=== PATIENT | female | born 1950 | race African-American/Black ===

== ENCOUNTER 2017-12-24 16:37 | Emergency (ER) | payer MEDICARE ==
[2017-12-24 17:26] LABS: #Basophils 0.1 thou/uL (0.0-0.2); #Eosinphils 0.3 thou/uL (0.0-0.7); #Lymphocytes 1.9 thou/uL (1.20-3.40); #Monocytes 0.5 thou/uL (0.11-0.59); #Neutrophils 3.6 thou/uL (1.40-6.50); %Basophils 0.9 % (0.0-1.0); %Eosinophils 4.2 % (0.0-10.0); %Lymphocytes 30.4 % (21.0-51.0); %Monocytes 7.7 % (0.0-10.0); %Neutrophils 56.8 % (42.0-75.0); Hemoglobin 13.8 g/dL (12.0-16.0); Mean Corpuscular HGB CONC 32.2 g/dL (32.0-36.0); Mean Corpuscular Hemoglobin 27.7 pg (27.0-31.0); Mean Corpuscular Volume 86.1 fL (78.0-98.0); Mean Platelet Volume 7.8 fL (7.4-10.4); Platelet Count 261 thou/uL (130-400); RBC Distribution Width 12.6 % (11.5-14.5); Red Blood Cell (RBC) Count 4.99 mill/uL (4.20-5.40); White Blood Cell (WBC) Count 6.4 thou/uL (4.8-10.8)
[2017-12-24 17:32] LABS: Bilirubin Negative (Negative); Blood, Urine Negative (Negative); Clarity CLEAR (Clear); Glucose, Urine (Dipstick) Negative (Negative); Leukocyte Negative (Negative); Nitrite Negative (Negative); Protein, Urine (Dipstick) Negative (Neg-Trace); Specific Gravity, Urine 1.003 (1.002-1.036); Urobilinogen 0.2 mg/dL (0.2-1.0); pH, Urine 7.5 (5.0-9.0)
[2017-12-24 17:52] LABS: ALT (SGPT) 24 U/L (8-55); AST (SGOT) 32 U/L (5-34); Alkaline Phosphatase 156 U/L (40-150); Anion Gap 13 mmol/L (10-20); BUN (Urea Nitrogen) 9 mg/dL (9.8-20.1); Bilirubin, Total 1.1 mg/dL (0.2-1.2); Calc. Creatinine Clearance 0 mL/min (70-130); Calcium 9.9 mg/dL (7.8-10.44); Carbon Dioxide 26 mmol/L (23-31); Chloride 99 mmol/L (98-107); Estimated GFR-MDRD Greater than 90; Globulin 3.6 g/dL (2.4-3.5); Glucose 85 mg/dL (80-115); Lipase 11 U/L (8-78); Potassium 4.6 mmol/L (3.5-5.1); Protein, Total 7.6 g/dL (6.0-8.3); Sodium 133 mmol/L (136-145); Troponin I Less than 0.010 ng/mL (< 0.028)
--- NOTE | 2017-12-24 18:20 | RAD ---
CHEST ONE VIEW: History: Dyspnea. Comparison: 09-01-15 FINDINGS: Cardiac silhouette is magnified by projection. Pulmonary vasculature is unremarkable. Mediastinum is midline with aortic calcification. No lobar consolidation or evidence of pneumothorax. IMPRESSION: Atherosclerosis. No active cardiopulmonary abnormalities are otherwise demonstrated. POS: [facility]
[2017-12-24] MEDS ORDERED: Ondansetron ODT 8 MG TAB ONE (19:05)
[2017-12-24] MEDS ORDERED: Ketorolac Tromethamine 60 MG/2 ML VIAL ONE (19:05)
--- NOTE | 2017-12-30 23:07 | EKG ---
Test Reason : Blood Pressure : / mmHG Vent. Rate : 077 BPM Atrial Rate : 077 BPM P-R Int : 128 ms QRS Dur : 080 ms QT Int : 334 ms P-R-T Axes : 060 -23 025 degrees QTc Int : 377 ms Normal sinus rhythm Possible Left atrial enlargement Left ventricular hypertrophy Nonspecific T wave abnormality Abnormal ECG Confirmed by ISELA GOMES ([id number]), book or script editor JOHANA PEPPER ([id number]) on 12/30/2017 11:06:59 PM Referred By: Confirmed By:ISELA GOMES
== END 2017-12-24 19:45 | disposition home or self-care (01) ==
LOC: ERS 16:37
DX: R10.10 Upper abdominal pain, unspecified (principal); M54.9 Dorsalgia, unspecified; I10 Essential (primary) hypertension; I50.9 Heart failure, unspecified; E78.5 Hyperlipidemia, unspecified; M19.90 Unspecified osteoarthritis, unspecified site; Z79.899 Other long term (current) drug therapy
CPT/HCPCS: 71045; 80053; 81003; 82553; 83690; 84484; 85025; 93005; 96372; J1885

== ENCOUNTER 2018-01-16 10:36 | Emergency (ER) | payer MEDICARE ==
[2018-01-16] MEDS ORDERED: Lidocaine 1% (PF) 30 ML VIAL ONE (11:59)
== END 2018-01-16 12:10 | disposition home or self-care (01) ==
LOC: ERS 10:36
DX: R51 Headache (principal); E78.5 Hyperlipidemia, unspecified; I11.0 Hypertensive heart disease with heart failure; I50.9 Heart failure, unspecified; E03.9 Hypothyroidism, unspecified; K21.9 Gastro-esophageal reflux disease without esophagitis; Z79.899 Other long term (current) drug therapy
CPT/HCPCS: 64505; J2001

== ENCOUNTER 2018-01-31 14:55 | Outpatient (CLI) | payer MEDICARE | END 2018-01-31 14:56 | disposition home or self-care (01) | LOC: BICMAMMO 14:55 | PROVIDERS: ATTEND Obstetrics & Gynecology | DX: N63.0 Unspecified lump in unspecified breast (principal); Z85.3 Personal history of malignant neoplasm of breast; Z80.3 Family history of malignant neoplasm of breast | CPT/HCPCS: 77066; G0279 ==

== ENCOUNTER 2018-03-25 18:08 | Emergency (ER) | payer MEDICARE ==
[2018-03-25] MEDS ORDERED: Ibuprofen 800 MG TAB ONE (18:52)
--- NOTE | 2018-03-25 21:22 | CT ---
CT BRAIN NONCONTRAST: DATE: 03-25-18 TIME: 6:45 P.M. HISTORY: 67-year-old female status post-acute head trauma due to fall. COMPARISON: 04-29-16 FINDINGS: Again noted are the small, faint, intraaxial slightly hyperdense lesions in the right side of the adal s and right posterior midbrain, that were demonstrated by the MRI of 01-05-10 to represent multiple sm all brainstem cavernomas. There is an anterior midline pontine intraaxial similar-appearing hyperdense lesion measuring approxi mately 0.7 x 0.4 cm (axial image 9 of 33, series 2) which was not present on the MRI of 2010. It was probably present on 04-29-16, but it appeared more faint on that particular study and was inconspicuous . There are multifocal patchy low density small lesions in the bilateral stone radiata and centrum amado iovale, consistent with chronic ischemic white matter changes due to microvascular atherosclerosis. T here is no evidence of supratentorial intraaxial hemorrhage, mass effect, midline shift, obstructive hydrocephalus, extraaxial fluid collection, subdural hematoma, epidural hematoma, subarachnoid hemorr matty, or calvarial fracture. IMPRESSION: 1. No evidence of acute, traumatic intracranial findings. 2. 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 3. Small focal hyperdense lesion at midline in the anterior afshin which was not present on the MRI of 2010. It resembles the nearby brainstem cavernous malformations, but because it is new since 2010, it is not consistent with a cavernous malformation. Exact etiology is uncertain. It was probably presen t in 04-29-16, but was more faint and more inconspicuous at that time. One possibility is that it is a cavernous malformation that had not had significant bleeding yet at the time of the 2010 MRI. 4. Recommend further evaluation with MRI of the brain with and without contrast (including gradient e cho axial sequence), on an elective basis. NETTA Pritchett POS: [facility]
== END 2018-03-25 20:16 | disposition home or self-care (01) ==
LOC: ERS 18:08
DX: S09.90XA Unspecified injury of head, initial encounter (principal); M19.90 Unspecified osteoarthritis, unspecified site; E78.5 Hyperlipidemia, unspecified; I10 Essential (primary) hypertension; K21.9 Gastro-esophageal reflux disease without esophagitis; Z79.899 Other long term (current) drug therapy; W22.8XXA Striking against or struck by other objects, initial encounter
CPT/HCPCS: 70450

== ENCOUNTER 2018-03-30 08:02 | Outpatient (CLI) | payer MEDICARE ==
--- NOTE | 2018-03-30 09:52 | ULT ---
HEPATIC ULTRASOUND WITH HEPATIC DOPPLER EVALUATION: DATE: 03/30/2018. HISTORY: Elevated liver function tests. FINDINGS: The gallbladder is not visualized and is reportedly surgically absent. The common duct measured 0.7 cm in diameter, which his within normal limits for post cholecystectomy changes. The liver and visualized portions of the IVC demonstrate a normal sonographic appearance. Portions o f the spleen are obscured due to shadowing from adjacent bowel gas, but the spleen is normal in size. The superior pole right kidney was imaged and has a normal sonographic appearance. The majority of the kidney is not imaged on this exam. Doppler evaluation with spectral analysis and color flow evaluation of the hepatic and splenic vessel s was performed with 2D imaging. There is normal directional flow seen within the portal, hepatic, a nd splenic veins. Arterial waveforms are documented within the hepatic and splenic arteries. IMPRESSION: 1. Cholecystectomy. 2. Normal appearance of the liver. POS: [facility]
== END 2018-03-30 08:03 | disposition home or self-care (01) ==
LOC: BICULT 08:02
PROVIDERS: ATTEND Internal Medicine Gastroenterology
DX: R94.5 Abnormal results of liver function studies (principal); Z90.49 Acquired absence of other specified parts of digestive tract
CPT/HCPCS: 76705

== ENCOUNTER 2018-04-18 13:58 | Outpatient (CLI) | payer MEDICARE ==
--- NOTE | 2018-04-18 16:11 | BD ---
DEXA BONE DENSITY: HISTORY: Disorder of bone density. COMPARISON: none. FINDINGS: LUMBAR SPINE BMD (g/cm2) T-SCORE Z-SCORE L1 1.080 0.8 2.0 L2 1.206 1.6 3.0 L3 1.269 1.7 3.1 L4 1.129 0.6 2.1 TOTAL 1.170 1.1 2.5 FEMORAL NECK 0.792 -0.5 0.3 TOTAL 0.907 -0.3 0.3 IMPRESSION: 1. Lumbar spine WHO classification is normal. Fracture risk is not increased. 2. Femoral neck WHO classification is normal. Fracture risk is not reported because all T-scores ar e at or above -1.0. POS: [facility]
== END 2018-04-18 13:59 | disposition home or self-care (01) ==
LOC: BICMAMMO 13:58
PROVIDERS: ATTEND Specialist
DX: M85.88 Other specified disorders of bone density and structure, other site (principal)
CPT/HCPCS: 77080

== ENCOUNTER 2018-05-02 14:42 | Outpatient (CLI) | payer MEDICARE ==
[~2018-05-02 14:42] MED LIST: Gadobenate Dimeglumine 529 MG/1 ML (20ML VIAL) ONE
[2018-05-02 15:33] LABS: Estimated GFR-MDRD - POC Greater than 90
--- NOTE | 2018-05-02 17:31 | MRI ---
MRI BRAIN WITH AND WITHOUT CONTRAST: DATE: 05/02/18 HISTORY: 67-year-old female with history of breast cancer, presents with syncope, R55, resulting in fall and h ead trauma. Abnormality found on noncontrast brain CT of 03/25/18, with recommendation for MRI. COMPARISON: MRI of 05/02/[address] of 03/25/18. TECHNIQUE: Multiple sequences obtained in axial, sagittal, and coronal planes; pre and post IV injection of gado linium-based contrast agent: 20 mL MultiHance. Additional thin slices obtained through the brainstem. FINDINGS: In addition to the previously described two separate cavernous malformations in the right side of the afshin, there are additional multiple other foci of hemosiderin (demonstrated by blooming magnetic heydi ceptibility artifact on the T2* gradient echo sequence) consistent with numerous additional, tiny cav ernous malformations. One of these is a new focus of hemosiderin stain at midline in the anterior adal s, associated with tiny focus of T1 and T2 hyperintensity, without enhancement, representing another cavernous malformation that had hemorrhaged sometime between the prior MRI of 04/14/[address] of 03/25/18, resulting in the focus of high CT density on 03/25/18. This is not a hemorrhagic metastasis ; there is no abnormal enhancement associated with this. 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 No cavernous malformation is visualized in the cerebrum or bilateral cerebellar hemispheres. There has been no other significant interval change. There are numerous small focal T2 hyperintense signal abnormalities in the bilateral stone radiate, centrum semiovale, and afshin, consistent with moderate chronic ischemic white matter changes due to mi crovascular atherosclerosis. Incidentally, there is a small old lacunar infarction in the left basal ganglia, which was also present on 05/02/18. There is no abnormal enhancement in the cerebral hemispheres. No obstructive hydrocephalus, mass effe ct, midline shift, or extra-axial fluid collection. No acute hemorrhage. IMPRESSION: 1. Multiple cavernous malformations in the brainstem, mostly in the afshin (and associated development al venous anomaly (DVA) and capillary telangiectasia). 2. One of them, at midline in the anterior afshin, had undergone hemorrhage sometime between the previ ous MRI of 04/14/[address] of 03/25/18, resulting in the abnormal appearance on that recent brain CT. 3. Moderate degree of chronic ischemic white matter changes due to microvascular atherosclerosis. 4. Small old lacunar infarction in the left basal ganglia. 5. No evidence of intracranial malignant neoplasm, or any acute intracranial findings. JN Shreyas POS: [facility]
== END 2018-05-02 14:43 | disposition home or self-care (01) ==
LOC: BICMRI 14:42
PROVIDERS: ATTEND Specialist
DX: R55 Syncope and collapse (principal); I70.90 Unspecified atherosclerosis; Z86.73 Personal history of transient ischemic attack (TIA), and cerebral infarction without residual deficits
CPT/HCPCS: 70553; 82565; A9577

== ENCOUNTER 2018-08-11 21:17 | Emergency (ER) | payer MEDICARE ==
[2018-08-11 22:10] LABS: #Basophils 0.1 thou/uL (0.0-0.2); #Eosinphils 0.5 thou/uL (0.0-0.7); #Lymphocytes 2.4 thou/uL (1.20-3.40); #Monocytes 0.6 thou/uL (0.11-0.59); #Neutrophils 3.4 thou/uL (1.40-6.50); %Basophils 1.3 % (0.0-1.0); %Eosinophils 7.5 % (0.0-10.0); %Lymphocytes 33.7 % (21.0-51.0); %Monocytes 8.7 % (0.0-10.0); %Neutrophils 48.8 % (42.0-75.0); Hemoglobin 12.9 g/dL (12.0-16.0); Mean Corpuscular HGB CONC 33.7 g/dL (32.0-36.0); Mean Corpuscular Hemoglobin 28.9 pg (27.0-31.0); Mean Corpuscular Volume 85.7 fL (78.0-98.0); Mean Platelet Volume 7.8 fL (7.4-10.4); Platelet Count 227 thou/uL (130-400); Red Blood Cell (RBC) Count 4.48 mill/uL (4.20-5.40)
[2018-08-11 22:26] LABS: Bilirubin Negative (Negative); Blood, Urine Negative (Negative); Clarity CLEAR (Clear); Glucose, Urine (Dipstick) Negative (Negative); Leukocyte Trace (Negative); Nitrite Negative (Negative); Protein, Urine (Dipstick) Negative (Neg-Trace); Specific Gravity, Urine 1.008 (1.002-1.036); Urobilinogen 0.2 mg/dL (0.2-1.0); pH, Urine 6.5 (5.0-9.0)
[2018-08-11 22:29] LABS: Bacteria/HPF None Seen HPF (None Seen); Hyaline Casts/LPF 0-3 HYALINE CAST LPF (0-3 Hyaline); RBC/HPF 0-3 HPF (0-3); Squamous Epithelial 0-3 HPF (0-3); WBC/HPF 0-3 HPF (0-3)
[2018-08-11 22:33] LABS: ALT (SGPT) 24 U/L (8-55); AST (SGOT) 23 U/L (5-34); Albumin 3.8 g/dL (3.4-4.8); Alkaline Phosphatase 150 U/L (40-150); Anion Gap 13 mmol/L (10-20); BUN (Urea Nitrogen) 11 mg/dL (9.8-20.1); Bilirubin, Total 0.8 mg/dL (0.2-1.2); Calc. Creatinine Clearance 0 mL/min (70-130); Calcium 9.5 mg/dL (7.8-10.44); Carbon Dioxide 25 mmol/L (23-31); Chloride 95 mmol/L (98-107); Estimated GFR-MDRD Greater than 90; Globulin 3.2 g/dL (2.4-3.5); Glucose 91 mg/dL (80-115); Sodium 129 mmol/L (136-145)
--- NOTE | 2018-08-11 23:43 | CT ---
CT NECK WITH CONTRAST: 08/11/18 Axial tomograms obtained through the neck with IV enhancement with multiplanar reconstruction. INDICATION: Swelling left neck. History of thyroid goiter. No comparisons studies. FINDINGS: There is a large low density mass which appears centered at the level of the left lobe of the thyroid . This huge mass measures 9.5 cm width x 6.7 cm AP dimension in the axial plane. It produces mass eff ect on the larynx and trachea with significant midline shift to the right. The right lobe of the thyroid is identified and shows heterogeneous enhancement with several small no dules present which are subcentimeter. The parotid glands and submandibular glands unremarkable. Nasopharynx and oropharynx unremarkable. No significant adenopathy. Degenerative changes in the cervical spine most pronounced at C4-5, C5-6, and C6-7. Posterior spondyl itic changes impinge on the cord at C4-5 and C5-6. These changes produce significant cord compressio n and central canal stenosis. IMPRESSION: 1. A large low density mass in the left neck centered at the level of the left lobe of the thyro id. It is producing mass effect and midline shift to the larynx and trachea as noted above. 2. Degenerative changes in the cervical spine with posterior spondylosis producing cord compress ion at C4-5 and C5-6. POS: [facility]
== END 2018-08-12 01:39 | disposition home or self-care (01) ==
LOC: ERS 21:17
DX: E07.9 Disorder of thyroid, unspecified (principal); I11.0 Hypertensive heart disease with heart failure; I50.9 Heart failure, unspecified; E78.5 Hyperlipidemia, unspecified; E03.9 Hypothyroidism, unspecified; K21.9 Gastro-esophageal reflux disease without esophagitis; Z79.899 Other long term (current) drug therapy
CPT/HCPCS: 36415; 70491; 80053; 81003; 81015; 83605; 84443; 85025

== ENCOUNTER 2018-08-17 18:51 | Inpatient (IN) | payer MEDICARE ==
[~2018-08-17 18:51] MED LIST changes: -Gadobenate Dimeglumine 529 MG/1 ML (20ML VIAL) ONE; +ISOVUE-370 76%-LOCM 1 ML ONE
[2018-08-17 19:53] LABS: #Basophils 0.1 thou/uL (0.0-0.2); #Eosinphils 0.5 thou/uL (0.0-0.7); #Monocytes 0.7 thou/uL (0.11-0.59); %Basophils 0.8 % (0.0-1.0); %Eosinophils 6.8 % (0.0-10.0); %Lymphocytes 27.3 % (21.0-51.0); %Monocytes 10.2 % (0.0-10.0); Hemoglobin 12.7 g/dL (12.0-16.0); Mean Corpuscular HGB CONC 32.3 g/dL (32.0-36.0); Mean Corpuscular Hemoglobin 28.7 pg (27.0-31.0); Mean Corpuscular Volume 88.8 fL (78.0-98.0); Mean Platelet Volume 7.5 fL (7.4-10.4); Platelet Count 244 thou/uL (130-400); RBC Distribution Width 12.1 % (11.5-14.5); Red Blood Cell (RBC) Count 4.41 mill/uL (4.20-5.40); White Blood Cell (WBC) Count 7.2 thou/uL (4.8-10.8)
[2018-08-17 20:11] LABS: ALT (SGPT) 21 U/L (8-55); AST (SGOT) 20 U/L (5-34); Albumin 3.7 g/dL (3.4-4.8); Alkaline Phosphatase 147 U/L (40-150); Anion Gap 11 mmol/L (10-20); BUN (Urea Nitrogen) 7 mg/dL (9.8-20.1); Bilirubin, Total 0.7 mg/dL (0.2-1.2); Calc. Creatinine Clearance 0 mL/min (70-130); Calcium 9.3 mg/dL (7.8-10.44); Carbon Dioxide 25 mmol/L (23-31); Chloride 98 mmol/L (98-107); Estimated GFR-MDRD Greater than 90; Globulin 3.1 g/dL (2.4-3.5); Glucose 87 mg/dL (80-115); Potassium 4.3 mmol/L (3.5-5.1); Protein, Total 6.8 g/dL (6.0-8.3); Sodium 130 mmol/L (136-145)
[2018-08-18] MEDS ORDERED: HYDROcodone/Acetaminophen 10/325 mg Tablet ONE (00:14)
[2018-08-18] MEDS ORDERED: Ketorolac Tromethamine 60 MG/2 ML VIAL ONE (00:14)
[2018-08-18] MEDS ORDERED: Dexamethasone 4 MG TAB ONE (01:15)
[2018-08-18] MEDS ORDERED: Morphine 2 MG/ML SYRINGE SLOW IVP PRN ×3 (03:46→07:58)
[2018-08-18] MEDS ORDERED: Acetaminophen 325 MG TAB PO PRN (03:47)
[2018-08-18] MEDS ORDERED: Ondansetron ODT 4 MG TAB SL PRN (03:47)
[2018-08-18] MEDS ORDERED: Morphine 4 MG/ML VIAL SLOW IVP PRN (03:47)
[2018-08-18] MEDS ORDERED: Ondansetron PF 4 MG/2 ML Vial IVP PRN ×2 (03:47→07:48)
[2018-08-18] MEDS ORDERED: HYDROcodone/Acetaminophen 5/325 mg Tablet PO PRN ×2 (03:47)
[2018-08-18] MEDS ORDERED: Sodium Chloride 0.9% 1,000 ML IV SCH (04:00)
[2018-08-18 05:19] VITALS: BMI 39.6
[2018-08-18] MEDS ORDERED: Sodium Chloride 0.9% (PF) 10 ML VIAL FS PRN (07:43)
--- NOTE | 2018-08-18 07:56 | HP ---
CHIEF COMPLAINT: Large goiter causing airway and esophageal constriction. HISTORY OF PRESENT ILLNESS: The patient is a 68-year-old female, who came to see Dr. Portillo approximately 3 weeks ago in his office for the first visit. Immediately, it was noted that she had a very large goiter present and also on review of her past medical history, it was evident that she has had thyroid disease for quite some time, and further evaluation was necessary. An Endocrine referral was made, but as of at the time of this dictation, the patient has not heard from that specialist for followup. However, over that time frame, she feels like the mass is enlarged significantly and is now causing her choking sensation and pain. She states that she cannot wait. It is too painful. She has to have something done about this. She was seen once earlier in the ER approximately 1 week ago and was deferred for outpatient care. However, she was told to come back if her symptoms worsen and she states indeed they have. She is now having difficulty swallowing, difficulty breathing, especially when lying flat. In the ER, CT scan was repeated from previous ER visit and does show enlargement. PAST MEDICAL HISTORY: Significant for arthritis, hypertension, history of breast cancer, hypothyroidism, gastroesophageal reflux, hyperlipidemia, allergic rhinitis, hypothyroidism. PAST SURGICAL HISTORY: Her prior surgeries include knee surgery bilaterally, appendectomy, cholecystectomy, and right breast cancer. SOCIAL HISTORY: Denies any drug or alcohol use. Does not smoke. FAMILY HISTORY: Positive coronary artery disease and diabetes as well as hypertension and malignancy. ALLERGIES: SHE HAS NO KNOWN DRUG ALLERGIES. MEDICATIONS: Her medications on admission include; 1. Pravastatin 20 mg at bedtime. 2. Anastrozole 1 mg daily. 3. [employer] Thyroid 60 mg a day. 4. Omeprazole 20 mg a day. 5. Singulair 10 mg a day. 6. Carvedilol 12.5 mg a day. REVIEW OF SYSTEMS: GENERAL: At the time of admission, denies fever, chills, but has general weakness. HEENT: Denies drainage in ears, nose, or throat. No sores or lesions. CHEST: Denies coughing, but has shortness of breath when lying flat. CARDIOVASCULAR: Denies chest pain or palpitations. GASTROINTESTINAL: Denies nausea, vomiting, or diarrhea. GENITOURINARY: Denies blood in urine or stool or dysuria. MUSCULOSKELETAL: Denies aches or pains in her major joints. SKIN: No new rashes or lesions. NEUROLOGIC: No trouble with mentation, hypoesthesia, or anesthesias. PHYSICAL EXAMINATION: VITAL SIGNS: At the time of admission, blood pressure 154/89, pulse 67, respirations 16, temperature 97.7, pain scale 10/10, and O2 saturation 100% on room air. GENERAL: This is a well-developed, well-nourished, female, alert and oriented and cooperative. HEENT: Normocephalic, atraumatic. Pupils are equal, round, and reactive to light. Extraocular muscles intact. TMs, nares, and pharynx are clear. Arcus senilis bilaterally. NECK: Taken up with a very large slightly left-sided mass that is firm and tender to palpation. CHEST: Clear to auscultation. BREASTS: Missing right, but remainder of breasts exam deferred. HEART: Regular rate and rhythm. CHEST: Good breath sounds bilaterally. ABDOMEN: Soft and nontender without organomegaly. GENITOURINARY: Deferred. EXTREMITIES: Without clubbing, cyanosis, or edema. Normal range of motion bilaterally in upper and lower extremities. Normal muscular tone. SKIN: Without rashes or lesions. NEUROLOGICAL: Cranial nerves are intact. Gait and cerebral function are untested. Sensory exam is grossly intact. Mental status is baseline. LABORATORY DATA: On admission showed CT scan with an enlarged thyroid mass, appears to be a goiter. ASSESSMENT: 1. Large neck mass , ?Goiter, encroaching esophagus and trachea creating dyspnea 2. History of right breast cancer. 3. Hypertension. 4. Hypothyroidism. 5. Gastroesophageal reflux disease. 6. Dyslipidemia. PLAN: Keep the patient n.p.o. We will get ENT consultation for possible surgery. In the meantime, we will provide pain management and supportive care. We will serially re-evaluate her and provide pain management. Job ID: [id number] [facility]
--- NOTE | 2018-08-18 08:21 | CT ---
PRELIMINARY REPORT/[facility]/AFTER HOURS PROCEDURE EXAM: CT Neck With Contrast EXAM DATE/TIME: 08/18/2018 12:42 AM CLINICAL HISTORY: 68 years old, female; Condition or disease; Patient HX: Mass on thyroid for unk time, dx recently. Told to come back for worsening sxs. C/O pain of her jaw and neck, feels like she is choking TECHNIQUE: Imaging protocol: Axial computed tomography images of the neck with intravenous contrast. Coronal and sagittal reformatted images were created and reviewed. COMPARISON: No relevant prior studies available. FINDINGS: Orbits: Changes of prior bilateral ocular surgery. Nasopharynx: Normal. Oropharynx: Normal. No significant tonsillar enlargement. Hypopharynx: Normal. Larynx: Normal. Normal epiglottis. Retropharyngeal space: Normal. Submandibular/Parotid glands: Normal. Glands are normal in size. Thyroid: Heterogeneous right thyroid lobe, containing several hypodense nodules, the largest measuring approximately 6 mm in diameter. Lymph nodes: Normal. No lymphadenopathy. Trachea: 9.0 x 7.7 x 9.3 cm hypodense mass within the left neck, causing rightward shift of the hypopharyngeal structures and cervical trachea. Lungs: Normal as visualized. Vasculature: No acute findings. Bones/joints: Multilevel cervical spine degenerative changes. Soft tissues: Normal. No significant soft tissue swelling. IMPRESSION: 9.0 x 7.7 x 9.3 cm hypodense mass within the left neck, causing rightward shift of the hypopharyngeal structures and cervical trachea. Differential considerations include proteinaceous cyst such as brachial cleft cyst. Alternatively, large thyroid cyst is possible. Recommend further evaluation. Thank you for allowing us to participate in the care of your patient. Dictated and Authenticated by: Miki Marcano MD 08/18/2018 3:23 AM Central Time ([place] & [place]) FINAL REPORT CT NECK WITH IV CONTRAST: PROVIDED CLINICAL HISTORY: Neck mass. COMPARISON: 08/11/2018 FINDINGS/IMPRESSION: Agree with the preliminary interpretation given by [facility]. Significant interval change with respect to the prior study is not apparent. ENT consultation is recommended. Transcribed Date/Time: 08/18/2018 8:34 AM
[2018-08-18] MEDS: Dextrose 5 % And 0.9 % NaCl 1,000 ML IV SCH ×2 (08:39→17:20)
[2018-08-18] MEDS: Carvedilol 6.25 MG TAB PO SCH ×2 (08:40→20:54)
[2018-08-18] MEDS: Pantoprazole 40 MG VIAL IVP SCH (08:43)
[2018-08-18] MEDS ORDERED: Dexamethasone 10 MG in Sodium Chloride 0.9% 50 ML IVPB SCH (09:00)
[2018-08-18] MEDS: Dexamethasone 10 MG/ML VIAL SLOW IVP SCH (14:51)
[2018-08-19] MEDS: Dextrose 5 % And 0.9 % NaCl 1,000 ML IV SCH ×2 (03:38→12:32)
[2018-08-19] MEDS: Dexamethasone 10 MG/ML VIAL SLOW IVP SCH ×2 (03:38→12:32)
[2018-08-19] MEDS: Thyroid 60 MG TAB PO SCH (06:24)
[2018-08-19] MEDS: Carvedilol 6.25 MG TAB PO SCH ×2 (08:41→21:34)
[2018-08-19] MEDS: Pantoprazole 40 MG VIAL IVP SCH (08:41)
[2018-08-19] MEDS ORDERED: Lidocaine 1% (PF) 30 ML VIAL ONE (15:32)
[2018-08-19] MEDS ORDERED: Ondansetron ODT 4 MG TAB PO PRN (20:25)
[2018-08-19] MEDS ORDERED: Dexamethasone 4 MG TAB PO SCH (20:30)
[2018-08-20] MEDS ORDERED: Dexamethasone 4 MG TAB PO SCH (08:00)
[2018-08-20] MEDS: Carvedilol 6.25 MG TAB PO SCH (08:48)
[2018-08-20] MEDS: Thyroid 60 MG TAB PO SCH (08:48)
[2018-08-20 08:55] VITALS: TEMP 97.8
[2018-08-20] MEDS ORDERED: cloNIDine 0.1 MG TAB PO SCH (10:30)
[2018-08-20 10:35] VITALS: BP 189/84
--- NOTE | 2018-08-28 07:50 | OP ---
DATE OF PROCEDURE: 08/18/2018 PREOPERATIVE DIAGNOSES: 1. Obstructive thyroid mass. 2. Substernal goiter. PROCEDURES PERFORMED: 1. Left thyroid lobectomy with substernal dissection. 2. Laryngeal nerve monitoring. PROCEDURE IN DETAIL: After consent was obtained, the patient was identified and brought to the operating room and placed on the operating room table in supine position. General endotracheal anesthesia was obtained with a laryngeal nerve monitoring endotracheal tube. The patient was positioned for surgery. The neck was prepped and draped in sterile fashion. The lower neck incision was delineated with a marking pen in the natural skin crease. The area was infiltrated with 1% lidocaine with 1:100,000 epinephrine. The mass was quite large, measuring nearly 40 cm and filling the entire left neck and displacing the trachea significantly to the esophagus. The incision was opened and carried down through the skin and subcutaneous tissues, and all the way down to the platysma. The platysma was incised and subplatysmal flaps were created. We then divided the strap muscles in midline, which were markedly displaced to the right. We got down on the thyroid capsule and admits meticulously dissected that from the strap muscles. With the help of retraction, the mass was dissected from the surrounding vascular sheath. The middle thyroid vessels, superior vessels, and inferior vessels were all found suture ligated. We then found the recurrent laryngeal nerve, which was markedly displaced and dissected that to its insertion into the cricothyroid muscle. At this point, we then transected the thyroid ligament and reflected the thyroid mass medially. Once all its structures were delineated, the mass was aspirated with several 100 mL of fluid to decrease its size so that we could continue the dissection. The mass was then more easily dissected from the pretracheal region and the substernal area. Care was made not to injure the great vessels with recurrent laryngeal nerve in the substernal area. The finger dissection was facilitated removing the mass from the aortic arch. The mass was then delivered back into the neck and the dissection continued. The thyroid was then transected at its midline and suture ligated. We then spent a significant amount of time obtaining hemostasis with a combination of Fibrillar, Surgicel, electrocautery, and bipolar cautery. Ultimately, no bleeding was encountered and the wound was closed and Fibrillar and Surgicel were placed in the deep aspect of the wound. The Valsalva failed to reveal any bleeding. We then proceeded with wound closure with reapproximation of the platysma in dermis region and the skin was closed with a running subcuticular. A dressing was placed. The patient was awakened, extubated, and taken to recovery room in stable condition prior to discharge home. Job ID: [id number]
== END 2018-08-20 10:37 | disposition home or self-care (01) | DRG 627 ==
LOC: ERS 18:51 → OBSVTOIN 08-18 02:08 → ONC 08-18 02:08
PROVIDERS: ADMIT Specialist; ATTEND Specialist
PROC: 0GBG0ZZ Excision of Left Thyroid Gland Lobe, Open Approach (ICD-10-PCS; principal; 2018-08-18)
PROC: 4A1004G Monitoring of Central Nervous Electrical Activity, Intraoperative, Open Approach (ICD-10-PCS; 2018-08-18)
DX: E04.9 Nontoxic goiter, unspecified (principal); I10 Essential (primary) hypertension; E03.9 Hypothyroidism, unspecified; K21.9 Gastro-esophageal reflux disease without esophagitis; E78.5 Hyperlipidemia, unspecified; M19.90 Unspecified osteoarthritis, unspecified site; Z85.3 Personal history of malignant neoplasm of breast; Z90.49 Acquired absence of other specified parts of digestive tract; Z98.890 Other specified postprocedural states
CPT/HCPCS: 36415; 70491; 80053; 84439; 84443; 85025; 88173; 88305; 96360; 96361; 96372; C9113; J1100; J1885; J2001; J2270; J8540; Q9966

== ENCOUNTER 2018-08-23 10:34 | Observation (INO) | payer MEDICARE ==
[~2018-08-23 10:34] MED LIST changes: +Dexamethasone 20 MG/5 ML VIAL ONE; -ISOVUE-370 76%-LOCM 1 ML ONE; +Ketorolac Tromethamine 30 MG/ML VIAL ONE; +Lidocaine 1% PF 5 ML VIAL ONE; +Metoclopramide HCl 10 MG/2 ML VIAL ONE; +Ondansetron PF 4 MG/2 ML Vial ONE; +PHENYLEPHRINE-NS 100 MCG/ML 10 ML SYRINGE ONE; +PROPOFOL 200 MG/20 ML VIAL ONE; +Succinylcholine Chloride 20 MG/ML 10 ml SYRINGE FS ONE; +ePHEDrine 50 MG/ML VIAL ONE
[2018-08-23] MEDS ORDERED: Fentanyl 100 MCG/2 ML VIAL ONE ×4 (11:21→16:34)
[2018-08-23] MEDS ORDERED: Famotidine/PF 20 mg/2ml Vial ONE (11:21)
[2018-08-23] MEDS ORDERED: Bacitracin Zinc Ointment 30 gm TUBE ONE (11:23)
[2018-08-23] MEDS ORDERED: Lidocaine 1% w/Epinephrine 1:100K 20 ML VIAL ONE (11:23)
[2018-08-23] MEDS ORDERED: Ondansetron HCl/PF 4 MG/2 ML Vial IVP PRN (14:05)
[2018-08-23] MEDS ORDERED: Hydrocodone-Acetamin 15 ML UDCUP ONE (17:35)
[2018-08-23] MEDS ORDERED: Morphine 2 MG/ML SYRINGE SLOW IVP PRN (20:30)
[2018-08-23] MEDS ORDERED: HYDROcodone/Acetaminophen 7.5/325 mg Tablet PO PRN (20:32)
[2018-08-23] MEDS ORDERED: Promethazine HCl 25 MG in Sodium Chloride 0.9% 50 ML IVPB PRN (20:33)
[2018-08-23] MEDS ORDERED: D5 1/4 NS 1,000 ML IV SCH (20:45)
[2018-08-23 21:55] VITALS: BMI 40.2
[2018-08-24] MEDS ORDERED: hydrALAZINE 20 MG/ML VIAL SLOW IVP PRN (00:40)
[2018-08-24] MEDS: HYDROcodone/Acetaminophen 7.5/325 mg Tablet PO PRN ×2 (00:48→11:31)
[2018-08-24] MEDS ORDERED: cefTRIAXone\\ROCEPHIN 1 GM in Sodium Chloride 0.9% 100 ML IVPB SCH (09:00)
[2018-08-24 11:18] VITALS: BP 151/68; TEMP 98.1
--- NOTE | 2018-08-24 14:47 | OP ---
DATE OF PROCEDURE: 08/23/2018 PREOPERATIVE DIAGNOSES: 1. Large left obstructive thyroid mass. 2. Large substernal extension of obstructive thyroid mass. POSTOPERATIVE DIAGNOSES: 1. Large left obstructive thyroid mass. 2. Large substernal extension of obstructive thyroid mass. PROCEDURE PERFORMED: Left thyroid lobectomy with substernal dissection. PROCEDURE IN DETAIL: After consent was obtained, the patient was identified and brought to the operating room and placed on the operating room table in supine position. General endotracheal anesthesia was obtained carefully considering the trachea was markedly displaced to the right. After the patient was positioned, prepped and draped. The area of intended incision was infiltrated with 1% lidocaine with 1:100,000 epinephrine. We made an incision through the skin, subcutaneous tissues, and platysma. A very large mass was incurred. Subplatysmal flaps were elevated and the strap muscles were divided. We encountered a very large cystic structure, which was meticulously dissected from the surrounding tissues. Some of the fluid content of the cystic mass was aspirated to facilitate dissection. Once mobilized medially, we were able to identify the superior vascular pole in the middle thyroid vessels, which were suture ligated. This then allowed for rotation of the mass again medially until the recurrent laryngeal nerve was identified. We were able to dissect the mass from the surrounding tissues in pretracheal area. The marked adhesive reaction had occurred. Ultimately, the thyroid ligament and inferior vessels were transected and the mass was divided in midline, sent for histologic evaluation. We then obtained hemostasis in the surgical bed after the extensive sub-external dissection occurred. The specimen was sent intact. Fibrillar and Surgicel were placed in the deep aspect of the wound in the pretracheal area and the strap muscles were reapproximated as was the platysma. The dermis was closed with Monocryl and the skin was closed with a running Prolene suture. Steri-Strips were applied and a sterile dressing. The patient was awakened, taken to recovery room in a stable condition prior to discharge home. Job ID: [id number]
== END 2018-08-24 17:10 | disposition home or self-care (01) ==
LOC: SDC 10:34 → 2SW 19:13
PROVIDERS: ADMIT Specialist; ATTEND Specialist
PROC: 0GTK0ZZ Resection of Thyroid Gland, Open Approach (ICD-10-PCS; principal; 2018-08-23)
DX: E04.1 Nontoxic single thyroid nodule (principal); J38.00 Paralysis of vocal cords and larynx, unspecified; R13.10 Dysphagia, unspecified
CPT/HCPCS: 60270; 88307; 93005; 96365; 96375; G0378; 93010; J0131; J0360; J0696; J1100; J1885; J2001; J2405; J2704; J2765; J3010; J3490; S0028

== ENCOUNTER 2018-09-17 20:53 | Emergency (ER) | payer MEDICARE ==
[2018-09-17] MEDS ORDERED: Metoclopramide HCl 10 MG/2 ML VIAL ONE (21:19)
--- NOTE | 2018-09-17 21:36 | CT ---
CT HEAD WITHOUT CONTRAST: HISTORY: Headache. COMPARISON: 03/25/2018 FINDINGS: There are numerous hyperdense lesions in the brainstem, which have been described previously as naif nous hemangioma. These appear stable. The ventricles remain normal in size and position. There are chronic ischemic white matter changes, which appear stable. No infarct or acute hemorrhage. IMPRESSION: No acute finding. POS: [facility]
[2018-09-17 21:53] LABS: #Basophils 0.1 thou/uL (0.0-0.2); #Eosinphils 0.1 thou/uL (0.0-0.7); #Lymphocytes 1.7 thou/uL (1.20-3.40); #Monocytes 0.7 thou/uL (0.11-0.59); #Neutrophils 3.1 thou/uL (1.40-6.50); %Basophils 0.9 % (0.0-1.0); %Eosinophils 2.3 % (0.0-10.0); %Lymphocytes 30.5 % (21.0-51.0); %Monocytes 11.5 % (0.0-10.0); %Neutrophils 54.7 % (42.0-75.0); Hemoglobin 12.1 g/dL (12.0-16.0); Mean Corpuscular HGB CONC 31.8 g/dL (32.0-36.0); Mean Corpuscular Hemoglobin 27.1 pg (27.0-31.0); Mean Platelet Volume 7.3 fL (7.4-10.4); Platelet Count 240 thou/uL (130-400); RBC Distribution Width 12.5 % (11.5-14.5); Red Blood Cell (RBC) Count 4.48 mill/uL (4.20-5.40); White Blood Cell (WBC) Count 5.7 thou/uL (4.8-10.8)
[2018-09-17 22:15] LABS: ALT (SGPT) 26 U/L (8-55); AST (SGOT) 26 U/L (5-34); Albumin 3.6 g/dL (3.4-4.8); Alkaline Phosphatase 122 U/L (40-150); Anion Gap 11 mmol/L (10-20); BUN (Urea Nitrogen) 6 mg/dL (9.8-20.1); Bilirubin, Total 1.3 mg/dL (0.2-1.2); CK (CPK) 199 U/L (29-168); Calc. Creatinine Clearance 0 mL/min (70-130); Calcium 9.2 mg/dL (7.8-10.44); Carbon Dioxide 26 mmol/L (23-31); Chloride 90 mmol/L (98-107); Estimated GFR-MDRD Greater than 90; Globulin 2.2 g/dL (2.4-3.5); Glucose 100 mg/dL (80-115); Potassium 4.3 mmol/L (3.5-5.1); Protein, Total 5.8 g/dL (6.0-8.3); Sodium 123 mmol/L (136-145)
[2018-09-17] MEDS ORDERED: Ketorolac Tromethamine 30 MG/ML VIAL ONE (22:36)
[2018-09-17] MEDS ORDERED: Acetaminophen 500 MG TAB ONE (23:46)
[2018-09-18] MEDS ORDERED: Magnesium 2 GM/50 ML BAG (IN WATER) ONE (00:03)
== END 2018-09-18 01:03 | disposition home or self-care (01) ==
LOC: ERS 20:53
DX: R51 Headache (principal); E87.1 Hypo-osmolality and hyponatremia; I11.0 Hypertensive heart disease with heart failure; I50.9 Heart failure, unspecified; E78.5 Hyperlipidemia, unspecified; M19.90 Unspecified osteoarthritis, unspecified site; K21.9 Gastro-esophageal reflux disease without esophagitis; E03.9 Hypothyroidism, unspecified; Z79.899 Other long term (current) drug therapy
CPT/HCPCS: 70450; 80053; 82550; 84484; 85025; 93005; 96365; 96366; 96367; 96375; J1885; J2765; J3475

== ENCOUNTER 2018-09-25 00:02 | Inpatient (IN) | payer MEDICARE ==
[2018-09-25 00:57] LABS: #Basophils 0.1 thou/uL (0.0-0.2); #Eosinphils 0.1 thou/uL (0.0-0.7); #Lymphocytes 1.5 thou/uL (1.20-3.40); #Monocytes 0.6 thou/uL (0.11-0.59); #Neutrophils 3.8 thou/uL (1.40-6.50); %Basophils 0.9 % (0.0-1.0); %Eosinophils 1.4 % (0.0-10.0); %Lymphocytes 24.9 % (21.0-51.0); %Monocytes 10.5 % (0.0-10.0); %Neutrophils 62.4 % (42.0-75.0); Hemoglobin 11.7 g/dL (12.0-16.0); Mean Corpuscular HGB CONC 33.8 g/dL (32.0-36.0); Mean Corpuscular Hemoglobin 28.7 pg (27.0-31.0); Mean Corpuscular Volume 84.9 fL (78.0-98.0); Mean Platelet Volume 7.4 fL (7.4-10.4); Platelet Count 199 thou/uL (130-400); RBC Distribution Width 12.6 % (11.5-14.5); Red Blood Cell (RBC) Count 4.07 mill/uL (4.20-5.40); White Blood Cell (WBC) Count 6.1 thou/uL (4.8-10.8)
[2018-09-25 01:04] LABS: INR-International Normal Ratio 1.2; PTT 26.9 SEC (22.9-36.1); Prothrombin Time 14.7 SEC (12.0-14.7)
[2018-09-25 01:18] LABS: Acetaminophen Less than 6.0 mcg/mL (10.0-30.0); Alcohol Less than 10 mg/dL (Less than 10); Salicylate Less than 8.0 mg/dL (15.0-30.0)
[2018-09-25 01:19] LABS: ALT (SGPT) 22 U/L (8-55); AST (SGOT) 24 U/L (5-34); Albumin 2.9 g/dL (3.4-4.8); Alkaline Phosphatase 94 U/L (40-150); Anion Gap 11 mmol/L (10-20); BUN (Urea Nitrogen) 8 mg/dL (9.8-20.1); Bilirubin, Total 1.1 mg/dL (0.2-1.2); CK (CPK) 316 U/L (29-168); Calc. Creatinine Clearance 0 mL/min (70-130); Calcium 8.7 mg/dL (7.8-10.44); Carbon Dioxide 25 mmol/L (23-31); Chloride 92 mmol/L (98-107); Estimated GFR-MDRD Greater than 90; Globulin 2.1 g/dL (2.4-3.5); Glucose 122 mg/dL (80-115); Lipase 7 U/L (8-78); Potassium 3.2 mmol/L (3.5-5.1); Sodium 125 mmol/L (136-145)
[2018-09-25] MEDS ORDERED: hydrALAZINE 20 MG/ML VIAL SLOW IVP PRN (01:24)
[2018-09-25 02:52] VITALS: BMI 37.3
[2018-09-25] MEDS ORDERED: Ondansetron ODT 4 MG TAB SL PRN (03:14)
[2018-09-25] MEDS ORDERED: Sodium Chloride 0.9% 1,000 ML IV SCH (03:14)
[2018-09-25] MEDS ORDERED: Ondansetron PF 4 MG/2 ML Vial IVP PRN (03:14)
--- NOTE | 2018-09-25 08:00 | CON ---
DATE OF CONSULTATION: HOSPITAL COURSE: Ms. Nj is a very pleasant 68-year-old woman that I am evaluating in the emergency department after she was transported via EMS here to [place] after her son found her down in the kitchen. He states that he was in the next room and heard a thud in the kitchen and went to go see and she was laying down on her face. I asked the patient, if she recalls this, she states she does remember walking in the kitchen, but does not remember falling. She does recall waking up in the kitchen and the son corroborates this saying that she did start to come around and interact with him some, but her speech was garbled and she was confused. This prompted to contact the EMS who came out to the house and brought her in. Of note, she received a week ago or so for hypertension. The son and niece in the room stated over the last few weeks her systolic pressures have become difficult to control frequently in the 180s and 190s. Her primary care physician had been working to help correct this by increasing the doses of her blood pressure medications, but unfortunately it seemed like it was dropping, although this evening her pressures have been in the 130s to 140s systolic. CT scan performed in the emergency department reveals 3 distinct areas of hyperdensities in the afshin likely indicating pontine hemorrhage, although multifocal. CTA was done, which reveals no vascular abnormalities. She is not on any blood thinning medications of note. PHYSICAL EXAMINATION: GENERAL: On examination, she is awake and interactive. She is appropriate and oriented to name, place, location, date of . EXTREMITIES: She has full 5/5 strength and function in the right upper extremity and bilateral lower extremities. However, the left upper extremity has some reduced dexterity, particularly in the hand and her nurse substance abuse strength I would say is about a 4+/5 as opposed to her right as previously stated as 5/5. HEENT: Pupils are equally round and reactive to light. Extraocular movements are intact. She has traumatic nasal hematoma likely from her fall and is missing one of her teeth, which is new since the fall. From neurosurgical standpoint this likely represents a non-operative hemorrhage, would recommend IMCU management given the likelihood that some of her symptoms would likely worsen given it is rather sensitive region of the brain. Close monitoring is warranted. With repeat CT scan in the morning around 8 hours from now and aim to control her systolic pressures with target below 140 with whichever antihypertensives the primary . Job ID: [id number]
--- NOTE | 2018-09-25 08:02 | CT ---
PRELIMINARY REPORT/[facility]/EMERGENCY AFTER HOURS PROCEDURE: EXAM: CT Cervical Spine Without Contrast EXAM DATE/TIME: 09/25/2018 12:10 AM CLINICAL HISTORY: 68 years old, female; Injury or trauma; Initial encounter; Blunt trauma; Patient HX: *level 1 stroke* f70, last seen normal around 2330. Left sided weakness, AMS. Patient was found in kitchen unresponsi ve, blood on face. Patient appears to have fallen and hit face. TECHNIQUE: Imaging protocol: Computed tomography images of the cervical spine without contrast. Coronal and sagi ttal reformatted images were created and reviewed. COMPARISON: CT Neck Soft Tissue W Con 08/18/2018 12:42 AM FINDINGS: Vertebrae: No acute fracture. Normal alignment. Discs/Spinal canal/Neural foramina: No spinal stenosis. No neural foraminal narrowing. Soft tissues: Unremarkable. Lungs: Lung apices are normal. IMPRESSION: No acute findings. Thank you for allowing us to participate in the care of your patient. Dictated and Authenticated by: Forrest Fry MD 09/25/2018 12:28 AM Central Time ([place] & [place]) FINAL REPORT CT CERVICAL SPINE WITHOUT CONTRAST: Date: 09/25/18 HISTORY: Trauma. Unresponsive patient. COMPARISON: None. FINDINGS: No craniocervical dissociation. Appropriate alignment of the lateral masses of C1 and C2. Multilevel degenerative changes of the cervical spine. Limited evaluation by technique. Cervical spine vertebral body height is maintained. No fracture. IMPRESSION: This report is in agreement with the preliminary report by [facility]. No fracture. POS: OFF
--- NOTE | 2018-09-25 08:06 | CT ---
PRELIMINARY REPORT/[facility]/EMERGENCY AFTER HOURS PROCEDURE: Addendum created by Forrest Fry MD on 09/25/2018 12:29 AM Central Time ([place] & [place]) Findings disc ussed with BRENDAN WEI MD at time of interpretation. Initial Report created on 09/25/2018 12:23 AM Central Time ([place] & [place]) EXAM: CT Head Without Contrast EXAM DATE/TIME: 09/25/2018 12:08 AM CLINICAL HISTORY: 68 years old, female; Weakness, extremity; Patient HX: *level 1 stroke* f70, last seen normal around 2330. Left sided weakness, AMS. Patient was found in kitchen unresponsive, blood on face. Patient kayode ears to have fallen and hit face. TECHNIQUE: Imaging protocol: Computed tomography images of the head without contrast. Other technique: STROKE PROTOCOL was implemented. COMPARISON: No relevant prior studies available. FINDINGS: Brain: There are 3 small areas of hyperdensity in the afshin and medulla which are suspicious for small acute intraparenchymal brainstem hemorrhages; however, cavernoma or less likely neoplasm cannot be e xcluded. No discernible brainstem edema. Mild generalized volume loss of the brain. Ventricles: Normal. No ventriculomegaly. Bones/joints: Unremarkable. No acute fracture. Sinuses: Visualized sinuses are unremarkable. No fluid levels. Mastoid air cells: Visualized mastoid air cells are well aerated. No mastoid effusion. Soft tissues: Unremarkable. IMPRESSION: There are 3 small areas of hyperdensity in the afshin and medulla, the largest of which measures 7 mm, which are suspicious for small acute intraparenchymal brainstem hemorrhages, potentially related to h ypertension. No discernible brainstem edema. Thank you for allowing us to participate in the care of your patient. Dictated and Authenticated by: Forrest Fry MD 09/25/2018 12:23 AM Central Time ([place] & [place]) FINAL REPORT HEAD CT WITHOUT CONTRAST: Date: 09/25/18 COMPARISON: 09/17/18. HISTORY: Level I stroke. Left-sided weakness. Unresponsive patient. FINDINGS: No parenchymal hemorrhage or extra-axial hematoma. No midline shift. Basilar cisterns are patent. Age -appropriate brain volume. Cortical kapadia-white matter differentiation is preserved. No evidence of hy drocephalus. 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 Calvarium is intact. IMPRESSION: This report is in agreement with the preliminary report by [facility]. There is no acute intracranial proce ss. 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 POS: OFF
--- NOTE | 2018-09-25 08:23 | RAD ---
SINGLE VIEW CHEST: HISTORY: Stroke like symptoms and altered mental status. COMPARISON: 12/24/2017 FINDINGS: A single view of the chest shows a normal sized cardiomediastinal silhouette with atherosclerotic jozef cifications in the aorta. There is no evidence of consolidation, mass, or pleural effusion. IMPRESSION: No evidence of acute cardiopulmonary disease. POS: CET
--- NOTE | 2018-09-25 08:26 | HP ---
CHIEF COMPLAINT: Acute hemorrhagic afshin/medulla CVA. HISTORY OF PRESENT ILLNESS: The patient is a 68-year-old female, who had been seeing Dr. Portillo for workup of her high blood pressure and a low sodium as well as correction of her thyroid functions since removal of a huge goiter. She was most recently hospitalized in August of this year where Dr. Oakes removed the huge goiter. The pathology on that is still pending. Pathological diagnosis is left thyroid lobe, lobectomy with benign thyroid cyst. No parathyroid glands identified. No atypia or malignancy identified. The patient's current injuries occurred when she states she had slipped and fallen on her face. Actually the patient was found down in her kitchen by her family with family voicing concern that she has hit her head, noting that she was missing 2 front teeth. EMS arrived to find the patient unconscious, requiring sternal rub to awaken. She is oriented x2 to self and place. Blood pressure 108/60 at the scene. D stick at 136. She was transported to [facility]. EMS noted to have garbled speech and a stroke Scale of 13 showing left-sided weakness and altered mental status. CT obtained in the emergency room quickly showed 3 small hypodense areas concerning for bleed in the afshin and medulla. Dr. Portillo was contacted concerning further evaluation and workup. When she was stabilized and she was transferred to the [facility] for further observation. PAST MEDICAL HISTORY: Includes congestive heart failure, hyperlipidemia, osteoarthritis, hypertension, right breast cancer, hypothyroidism, GERD and allergic rhinitis. PAST SURGICAL HISTORY: Includes knee surgery bilaterally, appendectomy, cholecystectomy, right breast cancer, and most recently left thyroid lobectomy. SOCIAL HISTORY: Does not use drugs or smoke. No alcohol use. FAMILY HISTORY: Positive for coronary artery disease and diabetes, hypertension, and malignancy. ALLERGIES: SHE HAS NO KNOWN DRUG ALLERGIES. MEDICATIONS: On admission include: 1. Omeprazole 40 mg daily. 2. [place] Thyroid 60 mg p.o. daily. 3. Pravastatin 20 mg at bedtime. 4. Anastrozole 1 mg daily. 5. Singulair 10 mg daily. 6. Carvedilol 12.5 mg b.i.d. REVIEW OF SYSTEMS: CONSTITUTIONAL: At this time, the patient is alert and denies any fever, chills, malaise. HEENT: Has facial swelling and pain at this time, missing her 2 front teeth. CHEST: Denies shortness of breath or cough. CARDIOVASCULAR: Denies palpitations or chest pain. GI: Denies nausea, vomiting, diarrhea. : Denies dysuria, blood in urine or stool. EXTREMITIES: Denies any new pain in joints or muscles. SKIN: No new rashes or lesions. NEUROLOGIC: Cranial nerves observed to be adequate. There is still some left-sided weakness noted and has headache from fall. PHYSICAL EXAMINATION: VITAL SIGNS: Blood pressure 108/59, pulse 63, respirations 19, pain scale of zero. O2 saturation 100% on room air. GENERAL: This is a morbidly obese female alert, responsive, in no acute distress. HEENT: Normocephalic with swollen face and lips with missing teeth. Pupils are equal, round, and reactive to light. Arcus senilis bilaterally. TMs clear. Pharynx with the aforementioned missing teeth. NECK: Supple. Trachea midline with well healed incision. No mass. CHEST: Clear to auscultation. BREAST: Deferred. HEART: Regular rate and rhythm without murmur. ABDOMEN: Soft without organomegaly, nontender. : Deferred. EXTREMITIES: Without clubbing, cyanosis, or edema. Diminished range of motion on the left with weakness generally in the left upper emergency room specialist and movement of the left leg. SKIN: No acute lesions. NEUROLOGIC: Cranial nerves appear intact. Unable to test gait and cerebellar function at this time. Sensory exam grossly intact. Mental status alert, oriented x3. LABORATORY DATA: On admission showed sodium 125, potassium 3.2, chloride 92, BUN 11, creatinine is 0.63, BUN 8, glucose 122, calcium 8.7. Liver function is normal. CK 316 and ammonia 26. Troponins are negative. TSH 3.69. WBC 6, hemoglobin 11.7, hematocrit 34.5, platelets at 199. PT 14.7, APTT 26.9 with an INR of 1.2. Tox screen is negative for alcohol, acetaminophen and salicylates. IMAGIN. CT scan significant for possible afshin/medulla infarcts. 2. Chest x-ray, no acute findings. ASSESSMENT: 1. 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 2. Traumatic fall with avulsion of front 2 teeth. 3. Recent history of left lobectomy for thyroid goiter. 4. Hypertension. 5. Hyponatremia. 6. Workup in progress for Syndrome of inappropriate antidiuretic hormone secretion. PLAN: 1. Plan will be to get Neurology consultation. 2. Serially re-evaluate her for stroke rehab. 3. Do a swallow study and consult Neurology and serially re-evaluate her. Job ID: [id number]
--- NOTE | 2018-09-25 08:32 | CT ---
PRELIMINARY REPORT/[facility]/EMERGENCY AFTER HOURS PROCEDURE: EXAM: CT Angiography Head Without And With Contrast EXAM DATE/TIME: 09/25/2018 12:23 AM CLINICAL HISTORY: 68 years old, female; Patient HX: *level 1 stroke* f70, last seen normal around 2330. Left sided weak ness, AMS. Patient was found in kitchen unresponsive, blood on face. Patient appears to have fallen a nd hit face. TECHNIQUE: Imaging protocol: Computed tomographic angiography images of the head without and with intravenous co ntrast using CT angiography protocol. Coronal and sagittal reformatted images were created and review ed. 3D rendering: MIP reconstructed images were created and reviewed. Other technique: STROKE PROTOCOL was implemented. COMPARISON: CT Brain WO Con 09/25/2018 12:08 AM FINDINGS: Right internal carotid artery: Unremarkable. Intracranial segment is patent with no significant steno sis. No aneurysm. Right anterior cerebral artery: Unremarkable. No occlusion or significant stenosis. No aneurysm. Right middle cerebral artery: Unremarkable. No occlusion or significant stenosis. No aneurysm. Right posterior cerebral artery: Unremarkable. No occlusion or significant stenosis. No aneurysm. Right vertebral artery: Unremarkable. No occlusion or significant stenosis. No aneurysm. Left internal carotid artery: Unremarkable. Intracranial segment is patent with no significant stenos is. No aneurysm. Left anterior cerebral artery: Unremarkable. No occlusion or significant stenosis. No aneurysm. Left middle cerebral artery: Unremarkable. No occlusion or significant stenosis. No aneurysm. Left posterior cerebral artery: Unremarkable. No occlusion or significant stenosis. No aneurysm. Left vertebral artery: Unremarkable. No occlusion or significant stenosis. No aneurysm. Basilar artery: Unremarkable. No occlusion or significant stenosis. No aneurysm. Other vasculature: There is what appears to be an incidental developmental venous anomaly in the afshin . HEAD: Brain: The hyperdensities that were visible on noncontrast CT are only faintly visible on the CTA. Besides small foci of intraparenchymal brainstem hemorrhage, these might signify incidental capillary telangiectasias. Ventricles: Normal. No ventriculomegaly. Bones/joints: Unremarkable. No acute fracture. Sinuses: Visualized sinuses are normal. No fluid levels. Mastoid air cells: Visualized mastoids are normal. No mastoid effusion. Soft tissues: There is potentially abnormal soft tissue density anterior to the nasal bones which cou ld signify hematoma. IMPRESSION: 1. There is what appears to be an incidental developmental venous anomaly in the afshin. 2. The hyperdensities that were visible on noncontrast CT are only faintly visible on the CTA. Beside s small foci of intraparenchymal brainstem hemorrhage, these might signify incidental capillary telan giectasias. 3. Cerebral arteries are normal. 4. There is potentially abnormal soft tissue density anterior to the nasal bones which could signify hematoma. Thank you for allowing us to participate in the care of your patient. Dictated and Authenticated by: Forrest Fry MD 09/25/2018 1:05 AM Central Time ([place] & [place]) FINAL REPORT CT ANGIOGRAM OF THE HEAD: Date: 09/25/18 HISTORY: Stroke. Left-sided weakness. COMPARISON: None. TECHNIQUE: CT angiogram of the head is performed in the axial plane. Three-dimensional reformatted images are sanchez bmitted for interpretation. FINDINGS: No pathologic enhancement of the brain parenchyma. There is appropriate enhancement and luminal diame ter of the visualized distal cervical and intracranial internal carotid arteries. [place] de monstrates appropriate enhancement and luminal diameter in terms of the anterior and posterior circul ation. Proximal A2 and MCA branches have symmetric enhancement and luminal diameter. IMPRESSION: This report is in agreement with the preliminary report by [facility]. No significant occlusion at the leve l of the [place]. Additional findings as described in the preliminary report by [facility]. POS: OFF
--- NOTE | 2018-09-25 08:56 | PRG ---
DATE OF SERVICE: 09/25/2018 Ms. Nj is admitted overnight around 6 o'clock in the morning for fall with altered mental status and CT identified small intraparenchymal hemorrhage of the afshin. This morning, she actually seems to be continuing to improve. She is speaking in full sentences, is fully oriented. Function of her left hand is improving. It has been definitely much stronger than it was some 5 hours ago this morning. I discussed with her that we will be repeating a CT scan around 9 o'clock this morning to check the size of these hemorrhages and if they look well, we will sign off and plan to follow up in 4 to 6 weeks. She will need excellent blood pressure control going forward with preference to keep systolic pressures under 140 date today and as previously stated, follow up with her in roughly a month to 6 weeks with repeat imaging at that time. Job ID: [id number]
[2018-09-25] MEDS ORDERED: Pantoprazole 40 MG VIAL IVP SCH (09:00)
[2018-09-25] MEDS ORDERED: Carvedilol 25 MG TAB PO SCH (09:00)
--- NOTE | 2018-09-25 09:39 | CT ---
CT BRAIN WITHOUT CONTRAST: HISTORY: Follow up intracranial hemorrhage. COMPARISON: Earlier exam done at 12:09 a.m. on the same date. FINDINGS: Small hyperdensities in the brainstem are stable and likely due to cavernous hemangiomas, which were also seen on the previous MRI brain of 05/02/2018. The exam is stable. No interval change is seen. IMPRESSION: Stable examination since 12;09 a.m. from the same date. POS: OFF
[2018-09-25] MEDS ORDERED: ISOVUE-370 76%-LOCM 1 ML ONE (10:02)
[2018-09-25] MEDS: Thyroid 60 MG TAB PO SCH (11:04)
--- NOTE | 2018-09-25 14:09 | CON ---
DATE OF CONSULTATION: 09/25/2018 SERVICE: Pulmonary Medicine. REASON FOR CONSULTATION: IMCU patient. HISTORY OF PRESENT ILLNESS: The patient is a 68-year-old female with past medical history significant for cerebral hemangiomas. They were previously identified on the CT scan. It gave us pause for concern, but ultimately, she had an MRI that demonstrated that these were clearly hemangiomas and were not acute intraparenchymal hemorrhages. Either way, she was in her usual state of health when she slipped and tripped. She fell and struck her head. She lost consciousness temporarily. She was brought to the Emergency Department, and a CT of the head gave for possible pontine intraparenchymal hemorrhages. She was placed in the ICU. A repeat CT was performed. These findings were stable. It was compared to a previous MRI, which was also stable. As such, she actually did not have an acute hemorrhagic event. She denies any current fevers, chills, nausea, or vomiting. She does have some sore face. She has noted no lightheadedness or dizziness. I asked her on multiple occasions whether or not she felt this was more of a mechanical fall versus getting dizzy or having a fall secondary to medical issues. She seemed to believe that she was in her usual state of health and had a mechanical fall because she continues to say that she "slipped." She remembers trying to catch herself on the way down, but failed to do so. PAST MEDICAL HISTORY: 1. Congestive heart failure. 2. Hypertension. 3. Dyslipidemia. 4. Hypothyroidism. 5. Breast cancer on the right. 6. Gastroesophageal reflux disease. 7. Allergic rhinitis. 8. Osteoarthritis. PAST SURGICAL HISTORY: 1. Knee surgeries, bilateral. 2. Appendectomy. 3. Cholecystectomy. 4. Mastectomy on the right. 5. Left thyroidectomy. SOCIAL HISTORY: Negative for alcohol, tobacco, or illicit drug use. FAMILY HISTORY: Noncontributory. ALLERGIES: NO KNOWN DRUG ALLERGIES. MEDICATIONS: List of her inpatient medications was reviewed. No specific updates were made at this time. REVIEW OF SYSTEMS: General; head, ears, eyes, nose, throat; cardiovascular; respiratory; GI; ; musculoskeletal; neurologic; and skin are negative except as mentioned in the HPI. PHYSICAL EXAMINATION: VITAL SIGNS: Afebrile, pulse 70, blood pressure 111/51, respirations 24, and saturation 100% on room air. GENERAL: The patient is awake and alert, in no apparent distress. LUNGS: One full air entry without any prolonged expiratory phase or wheezing. HEART: Normal rate and regular. ABDOMEN: Soft, nontender, and nondistended. Bowel sounds positive. MUSCULOSKELETAL: No cyanosis or clubbing. No pitting in the bilateral lower extremities. NEUROLOGIC: Grossly nonfocal. Rapidly alternating movements are symmetric bilaterally. Pupils are equal, round, and reactive. She has good extraocular movements. Cranial nerves are otherwise intact. Strength is symmetric bilaterally. Reflexes and sensation are not tested. LABORATORY DATA: WBC 6.1, hemoglobin 11.7, platelets 199,000. Basic metabolic profile significant for sodium of 125, which is close to her baseline. Potassium 3.2. Liver function studies are unremarkable. Her CK is 316. Troponin is negative x1, BNP is unremarkable. TSH falls within the normal limits. Salicylates, acetaminophen, and urine alcohol level were unremarkable. IMAGIN. CT of the brain demonstrates stable hemangiomas that were previously identified on MRI. No acute intraparenchymal abnormalities are identified. 2. Chest x-ray demonstrates no acute cardiopulmonary process. 3. CT of the [place] demonstrates no obstructive lesions. 4. CT of the C-spine demonstrates no osseous abnormality or subluxation. ASSESSMENT: 1. Mechanical fall. 2. 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 DISCUSSION AND PLAN: We will involve Physical Therapy and Occupational Therapy. I will discontinue our bed rest. I give her diet, and replace potassium. She is being worked up for her inappropriate ADH secretion. I will add fluid restriction to her diet. At this point, she has no further requirements for Pulmonary or Critical Care opinion, and I will sign off. Please call with additional questions or concerns through time. 70 minutes have been devoted to this patient in various activities. I personally reviewed all imaging studies and laboratory data noted within this document. For fifty percent of this time, I was interacting with the patient at the bedside or coordinating care with the care team. For the remainder of the time I was immediately available to the patient in the hospital unit. Job ID: [id number] [facility]
--- NOTE | 2018-09-25 14:23 | RAD ---
LEFT HAND THREE VIEWS: HISTORY: Arthritis. COMPARISON: None available. FINDINGS: There is osteoarthritis involving the interphalangeal joints, as well as the metacarpophalangeal join ts of the thumb and middle finger, as well as involving the greater multangular joint. Small erosion s are seen at the metacarpophalangeal joint, laterally, involving the ring finger. No fracture or di slocation is identified. No other osseous abnormality. IMPRESSION: Scattered osteoarthritis. POS: MAYELA
[2018-09-25] MEDS: Potassium Chloride 20 MEQ TAB PO SCH ×2 (15:14→17:48)
--- NOTE | 2018-09-25 18:31 | CON ---
DATE OF CONSULTATION: 09/25/2018 CONSULTING PHYSICIAN: Dr. Portillo. 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 PLAN: Blood pressure management as per Neurosurgery's recommendations. HISTORY OF PRESENT ILLNESS: Ms. Nj is a 68-year-old woman with past history of hypertension and vascular malformation in the brainstem. She was standing in her house when she started to feel hot. She got a bit nauseous and lightheaded. She had a mild headache associated with it. She decided to come in for an evaluation. Her CT showed 2 areas of small acute appearing hemorrhage in the afshin. CT angiogram was unremarkable for any major vessel anomalies, but only suggestive of venous malformation in the brainstem. She has had an MRI of the brain done in April of this year. There was no acute hemorrhage, but there was evidence of the development of hemosiderin compared to prior studies done in 2018. She has apparently been having some difficulty controlling her blood pressure lately. PAST MEDICAL HISTORY: Hypertension. ALLERGIES: NONE. SOCIAL HISTORY: Unremarkable. FAMILY HISTORY: Noncontributory. REVIEW OF SYSTEMS: Ten-system review of systems is otherwise negative. PHYSICAL EXAMINATION: GENERAL: She is an alert, cooperative, elderly lady, in no acute distress. VITAL SIGNS: Blood pressure 96/82. HEENT: Pupils are equal. Conjunctivae clear. Oropharynx clear. Cranium, normocephalic and atraumatic. NECK: Supple. EXTREMITIES: No cyanosis or edema. NEUROLOGIC: She is alert and cooperative. Her speech is fluent and clear. There is a slight flattening of the right nasolabial fold. Motor exam showed a questionable fix on arm roll testing on the left side. Sensation is subjectively equal. She could walk a short distance with a roller walker. IMAGING STUDIES: Reviewed. SUMMARY: An elderly lady with developmental vascular malformation that had shown some sign of intermittent hemorrhage in the past. I would not put her on antiplatelet therapy, and would agree with blood pressure management as recommended by Neurosurgery. Job ID: [id number]
[2018-09-25] MEDS: Labetalol HCl 100 MG/20 ML VIAL SLOW IVP PRN (21:27)
--- NOTE | 2018-09-25 21:47 | PRG ---
DATE OF SERVICE: 09/25/2018 Ms. Nj is a 68-year-old female admitted for altered mental status, status post fall. She had a CT examination performed, which revealed presence of small punctate hemorrhages within the brainstem. She had followup imaging, which shows no significant expansion inside these hemorrhages and she has a neurologic exam that is improving clinically. I reviewed the note of assessment by Rajiv Almeida as well as notes by other practitioners. I agree with the plan of action, which is nonoperative management. She will need to undergo PT, OT. We will follow up with her in the outpatient clinic. Job ID: [id number]
[2018-09-25] MEDS ORDERED: Pravastatin Sodium 20 MG TAB PO SCH (22:30)
[2018-09-25] MEDS ORDERED: Anastrozole 1 MG TAB PO SCH (22:30)
[2018-09-26] MEDS: Carvedilol 6.25 MG TAB PO SCH ×3 (00:28→22:02)
[2018-09-26] MEDS: Labetalol HCl 100 MG/20 ML VIAL SLOW IVP PRN (00:47)
[2018-09-26 05:41] LABS: #Eosinphils 0.1 thou/uL (0.0-0.7); #Lymphocytes 1.9 thou/uL (1.20-3.40); #Monocytes 0.7 thou/uL (0.11-0.59); #Neutrophils 3.9 thou/uL (1.40-6.50); %Basophils 0.2 % (0.0-1.0); %Monocytes 10.7 % (0.0-10.0); Hemoglobin 11.8 g/dL (12.0-16.0); Mean Corpuscular HGB CONC 33.2 g/dL (32.0-36.0); Mean Corpuscular Hemoglobin 28.4 pg (27.0-31.0); Mean Corpuscular Volume 85.4 fL (78.0-98.0); Mean Platelet Volume 7.6 fL (7.4-10.4); Platelet Count 204 thou/uL (130-400); RBC Distribution Width 12.9 % (11.5-14.5); Red Blood Cell (RBC) Count 4.14 mill/uL (4.20-5.40); White Blood Cell (WBC) Count 6.6 thou/uL (4.8-10.8)
[2018-09-26 06:04] LABS: Anion Gap 9 mmol/L (10-20); BUN (Urea Nitrogen) 6 mg/dL (9.8-20.1); Calc. Creatinine Clearance 145 mL/min (70-130); Carbon Dioxide 24 mmol/L (23-31); Cardiac Risk 2.3 (Less than 4.5); Chloride 101 mmol/L (98-107); Cholesterol 117 mg/dl (< 200 Desired); Estimated GFR-MDRD Greater than 90; Glucose 78 mg/dL (80-115); HDL Cholesterol 50 mg/dL (>60 Neg Risk); LDL Cholesterol, Calculated 57 mg/dL; Potassium 3.8 mmol/L (3.5-5.1); Sodium 130 mmol/L (136-145); Triglycerides 48 mg/dL (Less than 150)
[2018-09-26] MEDS: hydrALAZINE 25 MG TAB PO SCH ×3 (09:06→21:27)
[2018-09-26] MEDS: Thyroid 60 MG TAB PO SCH (09:06)
--- NOTE | 2018-09-26 13:08 | RAD ---
RADIOGRAPH LEFT HIP 2 VIEWS: 09/26/18 HISTORY: 68-year-old female with acute traumatic left hip pain after fall. FINDINGS: There is vacuum joint phenomenon, joint space narrowing, irregularity of articular surfaces, osteophy tosis, subchondral cyst formation, and severe sclerosis, of lower portion of left SI joint. Femoral h ead contour is maintained. Little or no left hip joint space narrowing. No significant acetabular or subcapital osteophytes. No fracture visualized. No dislocation. IMPRESSION: 1. Severe osteoarthrosis of the left sacroiliac joint. 2. Normal appearance of left hip joint. POS: [facility]
--- NOTE | 2018-09-26 13:12 | CT ---
CT MAXILLOFACIAL NONCONTRAST: 09/26/18 HISTORY: 68-year-old female status post acute facial trauma from fall. FINDINGS: Nondisplaced, probably acute, fracture of inferolateral aspect of right nasal bone, with overlying so ft tissue edema. No other fracture. Paranasal sinuses and bilateral tympanomastoid cavities, are summer r. Soft tissue density mass within right external auditory canal. No hematoma in deep spaces of face. TMJs are bilaterally intact. Moderate to severe degenerative disc disease at C3-4 and severe degener ative disc disease at C4-5. Orbits are clear. IMPRESSION: 1. Acute, traumatic, nondisplaced fracture of inferolateral portion of right nasal bone. 2. No other fracture. 3. Cerumen in right external auditory canal. 4. High grade cervical spondylosis. POS: SID
[2018-09-26 17:55] LABS: CCP IgG Antibody Less than 0.4 EliAU/mL (<7 Negative); EliA RAS New Method **** NEW METHOD ****; Rheumatoid Factor IgA Antibody 1.4 IU/mL (<14 Negative); Rheumatoid Factor IgM Antibody Less than 0.5 IU/mL (<3.5 Negative)
[2018-09-26] MEDS: Pravastatin Sodium 20 MG TAB PO SCH (22:02)
[2018-09-26] MEDS: Acetaminophen 325 MG TAB PO PRN (22:03)
[2018-09-26] MEDS: Anastrozole 1 MG TAB PO SCH (22:03)
[2018-09-27] MEDS: Thyroid 60 MG TAB PO SCH (09:55)
[2018-09-27] MEDS: hydrALAZINE 25 MG TAB PO SCH ×3 (09:55→20:30)
[2018-09-27] MEDS: Carvedilol 6.25 MG TAB PO SCH ×2 (10:00→20:30)
--- NOTE | 2018-09-27 10:20 | RAD ---
RADIOGRAPH CHEST 2 VIEW: DATE: 09-27-18 HISTORY: 68-year-old female with aspiration pneumonia FINDINGS: There are no air space densities, pulmonary edema, pneumothorax, or pleural effusion. Cardiac size n ormal or upper limits of normal. IMPRESSION: No acute pulmonary findings. jn POS: CET
[2018-09-27] MEDS: Acetaminophen 325 MG TAB PO PRN (15:31)
[2018-09-27] MEDS: Pravastatin Sodium 20 MG TAB PO SCH (20:29)
[2018-09-27] MEDS: Anastrozole 1 MG TAB PO SCH (20:30)
[2018-09-28] MEDS: Acetaminophen 325 MG TAB PO PRN ×2 (02:40→15:17)
[2018-09-28 05:19] LABS: #Eosinphils 0.2 thou/uL (0.0-0.7); #Lymphocytes 1.8 thou/uL (1.20-3.40); #Monocytes 0.7 thou/uL (0.11-0.59); #Neutrophils 3.2 thou/uL (1.40-6.50); %Basophils 0.5 % (0.0-1.0); %Eosinophils 3.7 % (0.0-10.0); %Monocytes 11.8 % (0.0-10.0); Hemoglobin 11.5 g/dL (12.0-16.0); Mean Corpuscular HGB CONC 32.9 g/dL (32.0-36.0); Mean Corpuscular Hemoglobin 28.3 pg (27.0-31.0); Mean Corpuscular Volume 85.9 fL (78.0-98.0); Mean Platelet Volume 7.4 fL (7.4-10.4); Platelet Count 195 thou/uL (130-400); RBC Distribution Width 13.1 % (11.5-14.5); Red Blood Cell (RBC) Count 4.07 mill/uL (4.20-5.40)
[2018-09-28 05:37] LABS: Anion Gap 12 mmol/L (10-20); BUN (Urea Nitrogen) 10 mg/dL (9.8-20.1); Calc. Creatinine Clearance 135 mL/min (70-130); Calcium 9.1 mg/dL (7.8-10.44); Carbon Dioxide 25 mmol/L (23-31); Chloride 100 mmol/L (98-107); Estimated GFR-MDRD Greater than 90; Glucose 90 mg/dL (80-115); Potassium 3.9 mmol/L (3.5-5.1); Sodium 133 mmol/L (136-145)
[2018-09-28] MEDS: hydrALAZINE 25 MG TAB PO SCH ×3 (08:50→21:55)
[2018-09-28] MEDS: Thyroid 60 MG TAB PO SCH (08:50)
[2018-09-28] MEDS: Carvedilol 6.25 MG TAB PO SCH ×2 (08:51→21:54)
[2018-09-28] MEDS: Anastrozole 1 MG TAB PO SCH (21:53)
[2018-09-28] MEDS: Pravastatin Sodium 20 MG TAB PO SCH (21:54)
[2018-09-29 06:05] LABS: Anion Gap 10 mmol/L (10-20); BUN (Urea Nitrogen) 10 mg/dL (9.8-20.1); Calc. Creatinine Clearance 129 mL/min (70-130); Calcium 9.2 mg/dL (7.8-10.44); Carbon Dioxide 27 mmol/L (23-31); Chloride 101 mmol/L (98-107); Estimated GFR-MDRD Greater than 90; Glucose 92 mg/dL (80-115); Potassium 4.1 mmol/L (3.5-5.1); Sodium 134 mmol/L (136-145)
[2018-09-29] MEDS: hydrALAZINE 25 MG TAB PO SCH ×3 (09:36→21:16)
[2018-09-29] MEDS: Fluticasone Propionate Nasal Spray 16 gm Bottle NASAL SCH ×2 (09:36→21:17)
[2018-09-29] MEDS: Carvedilol 6.25 MG TAB PO SCH ×2 (09:37→21:16)
[2018-09-29] MEDS: Thyroid 60 MG TAB PO SCH (09:37)
[2018-09-29] MEDS: Labetalol HCl 100 MG/20 ML VIAL SLOW IVP PRN (17:25)
[2018-09-29] MEDS: Acetaminophen 325 MG TAB PO PRN (21:15)
[2018-09-29] MEDS: Anastrozole 1 MG TAB PO SCH (21:15)
[2018-09-29] MEDS: Pravastatin Sodium 20 MG TAB PO SCH (21:17)
[2018-09-30 05:36] LABS: Anion Gap 9 mmol/L (10-20); BUN (Urea Nitrogen) 8 mg/dL (9.8-20.1); Calc. Creatinine Clearance 142 mL/min (70-130); Calcium 9.5 mg/dL (7.8-10.44); Carbon Dioxide 28 mmol/L (23-31); Chloride 99 mmol/L (98-107); Estimated GFR-MDRD Greater than 90; Glucose 88 mg/dL (80-115); Potassium 3.8 mmol/L (3.5-5.1); Sodium 132 mmol/L (136-145)
[2018-09-30] MEDS: hydrALAZINE 25 MG TAB PO SCH (08:12)
[2018-09-30] MEDS: Carvedilol 6.25 MG TAB PO SCH ×2 (08:13→21:23)
[2018-09-30] MEDS: Fluticasone Propionate Nasal Spray 16 gm Bottle NASAL SCH ×2 (08:13→21:24)
[2018-09-30] MEDS: Thyroid 60 MG TAB PO SCH (08:20)
[2018-09-30] MEDS ORDERED: Sodium Chloride 0.9% 250 ML 250 ML IVPB SCH (09:45)
[2018-09-30] MEDS: Sodium Chloride 0.9% 1,000 ML IV SCH ×2 (10:06→18:11)
[2018-09-30] MEDS: Anastrozole 1 MG TAB PO SCH (21:22)
[2018-09-30] MEDS: Famotidine 20 MG TAB PO SCH (21:24)
[2018-09-30] MEDS: Pravastatin Sodium 20 MG TAB PO SCH (21:24)
[2018-10-01 05:33] LABS: Anion Gap 9 mmol/L (10-20); BUN (Urea Nitrogen) 8 mg/dL (9.8-20.1); Calc. Creatinine Clearance 145 mL/min (70-130); Calcium 9.1 mg/dL (7.8-10.44); Carbon Dioxide 23 mmol/L (23-31); Chloride 104 mmol/L (98-107); Estimated GFR-MDRD Greater than 90; Glucose 80 mg/dL (80-115); Sodium 132 mmol/L (136-145)
[2018-10-01] MEDS: Sodium Chloride 0.9% 1,000 ML IV SCH (08:57)
[2018-10-01] MEDS: Famotidine 20 MG TAB PO SCH ×2 (09:08→20:14)
[2018-10-01] MEDS: Fluticasone Propionate Nasal Spray 16 gm Bottle NASAL SCH ×2 (09:08→20:11)
[2018-10-01] MEDS: Thyroid 60 MG TAB PO SCH (09:09)
[2018-10-01] MEDS: Carvedilol 25 MG TAB PO SCH ×2 (09:09→20:13)
[2018-10-01] MEDS: Acetaminophen 325 MG TAB PO PRN (15:41)
[2018-10-01] MEDS: Anastrozole 1 MG TAB PO SCH (20:12)
[2018-10-01] MEDS: Pravastatin Sodium 20 MG TAB PO SCH (20:14)
[2018-10-01 20:26] VITALS: BP 157/66; TEMP 98.7
--- NOTE | 2018-10-02 13:54 | EKG ---
Test Reason : Blood Pressure : / mmHG Vent. Rate : 063 BPM Atrial Rate : 063 BPM P-R Int : 150 ms QRS Dur : 092 ms QT Int : 438 ms P-R-T Axes : 074 -23 016 degrees QTc Int : 448 ms Normal sinus rhythm Nonspecific ST and T wave abnormality Abnormal ECG Confirmed by SANJUANA VAN, JOON ([id number]), purchasing expeditor JOHANA PEPPER ([id number]) on 10/02/2018 1:53:23 PM Referred By: Confirmed By:JOON WEI MD
== END 2018-10-01 23:00 | DRG 314 ==
LOC: ERS 00:02 → IMCU/EMU 02:44 → 2SE 20:27
PROVIDERS: ADMIT Specialist; ATTEND Specialist
DX: D18.09 Hemangioma of other sites (principal); R40.2222 Coma scale, best verbal response, incomprehensible words, at arrival to emergency department; E87.1 Hypo-osmolality and hyponatremia; I11.0 Hypertensive heart disease with heart failure; E78.5 Hyperlipidemia, unspecified; M19.90 Unspecified osteoarthritis, unspecified site; E03.9 Hypothyroidism, unspecified; K21.9 Gastro-esophageal reflux disease without esophagitis; J30.9 Allergic rhinitis, unspecified; R40.2362 Coma scale, best motor response, obeys commands, at arrival to emergency department; R40.2142 Coma scale, eyes open, spontaneous, at arrival to emergency department; W18.30XA Fall on same level, unspecified, initial encounter; S03.2XXA Dislocation of tooth, initial encounter; Z90.11 Acquired absence of right breast and nipple; Y92.010 Kitchen of single-family (private) house as the place of occurrence of the external cause; Z90.49 Acquired absence of other specified parts of digestive tract; Z85.3 Personal history of malignant neoplasm of breast
CPT/HCPCS: 36415; 36416; 70450; 70486; 70496; 71045; 71046; 72125; 80048; 80053; 80061; 80307; 82140; 82550; 83520; 83690; 83880; 84443; 84484; 85025; 85610; 85730; 86200; 87040; 87076; 93005; 96360; C9113; J0360; Q9966

== ENCOUNTER 2019-01-01 08:36 | Outpatient (CLI) | payer MEDICARE ==
--- NOTE | 2019-01-01 09:13 | CT ---
EXAM: Brain CT scan without contrast: HISTORY: Intracerebral hemorrhage COMPARISON: 09/25/2018 FINDINGS: Several stable circumscribed hyperdensity foci primarily within the afshin evidence for cavernous heman giomas. Atrophy and chronic white matter ischemic change. No focal mass or midline shift. No intra or extra-axial hemorrhage. The visualized sinuses and mastoids are clear of acute process. IMPRESSION: No mass or bleed or other significant acute intracranial process. Stable appearance. No new process.
== END 2019-01-01 08:37 | disposition home or self-care (01) ==
LOC: TBSIIMAG 08:36
PROVIDERS: ATTEND Neurological Surgery
DX: I62.9 Nontraumatic intracranial hemorrhage, unspecified (principal)
CPT/HCPCS: 70450

== ENCOUNTER 2019-02-15 10:19 | Outpatient (CLI) | payer MEDICARE ==
--- NOTE | 2019-02-15 11:40 | MMO ---
Bilateral MAMMO Bilat Diag DDI+ROBBY. CLINICAL HISTORY: Patient is 68 years old and is seen for diagnostic exam. The patient has the following family history of breast cancer: maternal grandmother, at age 45. The patient has a history of lumpectomy procedure revealed invasive ductal right breast carcinoma in January, and Ultrasound guided core biopsy procedure revealed invasive ductal right breast carcinoma in December,. The patient has a history of right Ultrasound Guided Core Biopsy in December, and right Lumpectomy in December, - malignant. VIEWS: The views performed were: bilateral craniocaudal with tomosynthesis; bilateral mediolateral oblique with tomosynthesis; and bilateral mediolateral with tomosynthesis. FILMS COMPARED: The present examination has been compared to prior imaging studies performed at [facility] on 06/09/2015, 12/15/2015, 12/16/2016 and 01/31/2018. This study has been interpreted with the assistance of computer-aided detection. MAMMOGRAM FINDINGS: There are scattered fibroglandular densities. Finding 1: There is a stable post-surgical scar seen in the right breast. Finding 2: There are stable benign appearing calcifications seen in both breasts. There are no suspicious masses, suspicious calcifications, or new areas of architectural distortion. IMPRESSION: THERE IS NO MAMMOGRAPHIC EVIDENCE OF MALIGNANCY. A ROUTINE FOLLOW-UP MAMMOGRAM IN 1 YEAR IS RECOMMENDED. THE RESULTS OF THIS EXAM WERE SENT TO THE PATIENT. ACR BI-RADS Category 2 - Benign finding MAMMOGRAPHY NOTE: 1. A negative mammogram report should not delay a biopsy if a dominant of clinically suspicious mass is present. 2. Approximately 10% to 15% of breast cancers are not detected by mammography. 3. Adenosis and dense breasts may obscure an underlying neoplasm. Reported by: CONOR SOSA MD Electonically Signed: [id number]
== END 2019-02-15 10:20 | disposition home or self-care (01) ==
LOC: BICMAMMO 10:19
PROVIDERS: ATTEND Specialist
DX: Z08 Encounter for follow-up examination after completed treatment for malignant neoplasm (principal); Z85.3 Personal history of malignant neoplasm of breast
CPT/HCPCS: 77066; G0279

== ENCOUNTER 2019-09-24 16:29 | Inpatient (IN) | payer MEDICARE, OTHER ==
--- NOTE | 2019-09-24 17:29 | CT ---
Exam: Head CT without contrast HISTORY: Altered mental status COMPARISON: 01/01/2019, 09/25/2018 FINDINGS: Hemorrhage: No intraparenchymal hemorrhage or extra-axial hematoma. Brain parenchyma: Cortical kapadia-white matter differentiation is preserved. No mass effect or midline shift. Basilar cisterns are patent.Stable chronic small vessel ischemic changes of the white matter. Stable hyperdensity in the midline of the afshin and right aspect of the midbrain compatible wi th known cavernous hemangiomas. Ventricular system: Ventricles and sulci are patent and symmetric. Calvarium: Intact. Sinuses and mastoid air cells: Adequate aeration. IMPRESSION: No acute intracranial process.
[2019-09-24 17:34] LABS: Bilirubin Negative (Negative); Blood, Urine Negative (Negative); Clarity Clear (Clear); Glucose, Urine (Dipstick) Normal (Negative); Ketone, Urine Negative (Negative); Leukocyte Negative Leu/uL (Negative); Nitrite Negative (Negative); Protein, Urine (Dipstick) Negative (Neg-Trace); pH, Urine 6.5 (5.0-9.0)
[2019-09-24 17:41] LABS: #Eosinphils 0.3 thou/uL (0.0-0.7); #Lymphocytes 1.6 thou/uL (1.20-3.40); #Monocytes 0.6 thou/uL (0.11-0.59); #Neutrophils 3.7 thou/uL (1.40-6.50); %Basophils 0.6 % (0.0-1.0); %Eosinophils 4.9 % (0.0-10.0); %Monocytes 9.6 % (0.0-10.0); %Neutrophils 58.8 % (42.0-75.0); Hemoglobin 12.4 g/dL (12.0-16.0); Mean Corpuscular HGB CONC 31.6 g/dL (32.0-36.0); Mean Corpuscular Hemoglobin 28.9 pg (27.0-31.0); Mean Corpuscular Volume 91.6 fL (78.0-98.0); Mean Platelet Volume 7.7 fL (7.4-10.4); Platelet Count 220 thou/uL (130-400); RBC Distribution Width 12.4 % (11.5-14.5); Red Blood Cell (RBC) Count 4.29 mill/uL (4.20-5.40); White Blood Cell (WBC) Count 6.3 thou/uL (4.8-10.8)
[2019-09-24 18:01] LABS: ALT (SGPT) 48 U/L (8-55); AST (SGOT) 33 U/L (5-34); Albumin 3.6 g/dL (3.4-4.8); Alkaline Phosphatase 121 U/L (40-110); Anion Gap 9 mmol/L (10-20); BUN (Urea Nitrogen) 16 mg/dL (9.8-20.1); Bilirubin, Total 1.2 mg/dL (0.2-1.2); CK (CPK) 103 U/L (29-168); Calc. Creatinine Clearance 0 mL/min (70-130); Calcium 8.8 mg/dL (7.8-10.44); Carbon Dioxide 28 mmol/L (23-31); Chloride 103 mmol/L (98-107); Estimated GFR-MDRD Greater than 90; Globulin 2.9 g/dL (2.4-3.5); Glucose 75 mg/dL (83-110); Lipase 11 U/L (8-78); Potassium 4.3 mmol/L (3.5-5.1); Protein, Total 6.5 g/dL (6.0-8.3); Sodium 136 mmol/L (136-145)
[2019-09-24] MEDS ORDERED: Aspirin 325 MG TAB ONE (19:07)
[2019-09-24 19:13] LABS: Hemoglobin A1c 5.3 % (4.0-6.0)
[2019-09-24] MEDS ORDERED: Ondansetron PF 4 MG/2 ML Vial IVP PRN (20:50)
[2019-09-24] MEDS ORDERED: Acetaminophen 325 MG TAB PO PRN (20:50)
[2019-09-24] MEDS ORDERED: Ondansetron ODT 4 MG TAB SL PRN (20:50)
[2019-09-25 00:26] VITALS: BMI 40.1
[2019-09-25] MEDS ORDERED: Acetaminophen 325 MG TAB PO PRN (07:52)
--- NOTE | 2019-09-25 07:57 | HP ---
CHIEF COMPLAINT ON ADMISSION: Altered mental status. HISTORY OF PRESENT ILLNESS: The patient is a 69-year-old female, who the family states has been confused since the previous Monday, approximately 5 to 7 days. She has been rambling, talking incoherently, refusing to take her medicines. At times, she would start off completely alert, oriented, and cooperative, and has no complaints of headaches, blurred vision, nausea, vomiting, diarrhea, fever, but would then change to garbled speech, complaints of numbness in her extremities, and would refuse her medication. Finally, the patient was brought to the emergency room for these changes. In the ER, complete workup thus far has been unrevealing showing a normal CAT scan of her head. Her lab work is fairly unremarkable. Urinalysis clear, and she is being observed and neurologically evaluated prior to what may be long-term placement. PAST MEDICAL HISTORY: Significant for congestive heart failure, hyperlipidemia, arthritis, hypertension, right breast cancer, hypothyroidism, acid reflux. PAST SURGICAL HISTORY: Includes appendectomy, removal of the right breast, cholecystectomy, thyroidectomy. PSYCHIATRIC HISTORY: In the past has been negative. SOCIAL HISTORY: She lives with her son who helps take care of her. Denies alcohol or drug use. Has never smoked. FAMILY HISTORY: Significant for hypertension, coronary artery disease, diabetes. ALLERGIES: THE PATIENT HAS NO KNOWN DRUG ALLERGIES. MEDICATIONS ON ADMISSION: 1. [place] Thyroid 60 mg a day. 2. Pravastatin 20 mg at bedtime. 3. Omeprazole 20 mg daily. 4. Carvedilol 12.5 mg b.i.d. 5. Spironolactone 25 mg daily. 6. Paxil 10 mg daily. 7. Singulair 10 mg daily. 8. Flonase nasal spray daily. REVIEW OF SYSTEMS: CONSTITUTIONAL: Denies fever, chills, fatigue, but the history is unreliable. HEENT: Has clear nasal drainage, otherwise no other lesions. CHEST: Denies shortness of breath or coughing. CARDIOVASCULAR: Denies palpitations or chest pain. GASTROINTESTINAL: Denies nausea, vomiting, or diarrhea. GENITOURINARY: Denies blood in urine or stool or dysuria. MUSCULOSKELETAL: Has complaints of arthritis in her knees and hands. SKIN: No new rashes or lesions. ENDOCRINE: Denies any polyuria, polydipsia, or kendell enlargement. PSYCHIATRIC: She has been confused, but denies headache, blurred vision. PHYSICAL EXAMINATION AT THE TIME OF ADMISSION: VITAL SIGNS: Blood pressure 144/83, pulse 51, respirations 18, temperature 98.6. Pain scale is 0/10. O2 saturation 98% on room air. GENERAL: This is an obese, elderly, female, alert, oriented, cooperative. HEENT: Normocephalic, atraumatic. Pupils equal, round, with diminished reactivity but equal, round, reactive to light. Arcus senilis bilaterally. TMs and Nares: Show pale and clear discharge. Pharynx is clear. NECK: Supple. Trachea midline. No bruits. CHEST: Clear to auscultation. BREASTS: Deferred. HEART: Regular rate and rhythm without murmur. ABDOMEN: Soft, nontender without organomegaly. GENITOURINARY: Deferred. EXTREMITIES: Without clubbing, cyanosis, or edema. Normal range of motion demonstrated. SKIN: No acute lesions. NEUROLOGIC: Starts off conversations, cooperative, oriented, but then goes into content that is confusing and nonsensical. The sensory is grossly intact. Gait and cerebral function not tested at this time. LAB WORK THUS FAR: Shows WBCs 6.3, hemoglobin 12.4, hematocrit 39.3 with platelets at 220. Sodium 136, potassium 4.3, chloride 103, CO2 of 28, BUN 16, creatinine 0.73, glucose 75. Hemoglobin A1c 5.3. TSH 3.43. Liver functions unremarkable except for alkaline phos at 121. Troponin I negative. Urinalysis completely unremarkable. CT of the brain shows no acute intracranial process. Cavernous hemangiomas are noted. Sinuses are clear. ASSESSMENT: 1. Progressive altered mental status without acute findings, probable dementia. 2. Hypertension. 3. Hypothyroidism. 4. Dyslipidemia. 5. Noncompliance with medication. PLAN: Will be Neurology consult and probable long-term placement as we complete her time of observation. Job ID: [id number]
[2019-09-25] MEDS: Fluticasone Propionate Nasal Spray 16 gm Bottle NASAL SCH ×2 (09:20→20:51)
[2019-09-25] MEDS: PARoxetine 20 MG TAB PO SCH (09:21)
[2019-09-25] MEDS: Carvedilol 6.25 MG TAB PO SCH ×2 (09:21→20:51)
[2019-09-25] MEDS: Potassium Chloride 10 MEQ TAB PO SCH (09:21)
[2019-09-25] MEDS: Spironolactone 25 MG TAB PO SCH (09:22)
[2019-09-25] MEDS: Thyroid 60 MG TAB PO SCH (09:22)
[2019-09-25 11:56] LABS: SARS-CoV-2 MS2 Positive; SARS-CoV-2 N Gene Negative; SARS-CoV-2 S Gene Negative; SARS-CoV-2 by NAA Not Detected (NotDetected); SARS-CoV-2 orf1ab Negative
--- NOTE | 2019-09-25 11:56 | EEG ---
DATE OF SERVICE: 09/25/2019 ATTENDING PHYSICIAN: Valentine Mcgill MD This EEG was performed using 24-channel [employer] video digital EEG machine with 24-disk electrodes. This was an extended 2 hours 4 minutes of inpatient video EEG recording. Digital analysis of the EEG was done for spike and seizure detection, which revealed no abnormalities. BACKGROUND: The posterior background rhythm is 9 to 10 hertz. The background rhythm attenuates with eye opening and enhances with eye closure. HYPERVENTILATION: Not performed. PHOTIC STIMULATION: Bioccipital symmetric driving response is observed. SLEEP: Drowsiness and sleep are observed. EEG DIAGNOSIS: Normal awake, drowsy, and sleep EEG. Job ID: [id number]
--- NOTE | 2019-09-25 12:25 | CON ---
NEUROLOGY CONSULTATION DATE OF CONSULTATION: 09/25/2019 REASON FOR CONSULTATION: Altered mental status. HISTORY OF PRESENT ILLNESS: Ms. Nj is a 69-year-old female with medical history significant for congestive heart failure, hyperlipidemia, hypertension, arthritis, hypothyroidism, right breast cancer, and gastroesophageal reflux disease, presented to the emergency room because of confusion for the last 5 to 7 days. Per her family, the patient has been rambling and talking incoherently and has refused to take her medications. The family denies noticing any focal weakness, focal paresthesias, nausea, vomiting, headache, chest pain, or abdominal pain associated with altered mental status. There is no history of recent illness. In the emergency room, head CT was done, which was negative for acute intracranial pathology. Lab work was unremarkable. Urinalysis was negative. Neurology was consulted to rule out acute intracranial process. REVIEW OF SYSTEMS: All 10 systems were reviewed and were negative except positive and negative mentioned in the HPI. PAST MEDICAL HISTORY: Congestive heart failure, hyperlipidemia, hypertension, arthritis, right breast cancer, hypothyroidism, gastroesophageal reflux disease. PAST SURGICAL HISTORY: Appendectomy, removal of right mastectomy, cholecystectomy, thyroidectomy. SOCIAL HISTORY: The patient lives with her son. Denies smoking, alcohol, illegal drug use. FAMILY HISTORY: Significant for hypertension, coronary artery disease, and diabetes. ALLERGIES: NO KNOWN DRUG ALLERGIES. HOME MEDICATIONS: 1. [place] thyroid 60 mg daily. 2. Pravastatin 20 mg at bedtime. 3. Omeprazole 20 mg daily. 4. Carvedilol 12.5 mg twice daily. 5. Spironolactone 25 mg daily. 6. Paxil 10 mg daily. 7. Singulair 10 mg daily. 8. Flonase nasal spray. PHYSICAL EXAMINATION: VITAL SIGNS: Blood pressure 140/80, pulse 60, respiratory rate 18. GENERAL: Alert and awake female, in no acute distress. HEENT: Normocephalic and atraumatic. CVS: Regular rate and rhythm. CHEST: Clear. NECK: No carotid bruit. NEUROLOGIC: Mental status, the patient is alert and oriented to person, place, time, month and year. Speech is clear. The patient has been confused at baseline and seems to be telling stories from a year or two ago. Cooperative with the exam and follows commands appropriately. Cranial nerves 2 through 12 intact. Motor, muscle tone and bulk are normal. Moving all 4 extremities equally and symmetrically. Sensory intact. Cerebellar, finger-nose testing intact. Gait deferred due to patient's safety reasons. DATA REVIEWED: I reviewed the labs which essentially unremarkable. I also reviewed CT of the head, which did not reveal any acute intracranial process, cavernous hemangioma. ASSESSMENT AND PLAN: Ms. Walt Nj is a 69-year-old female with history significant for diabetes, hypertension, and hyperlipidemia presented with progressive altered mental status, most likely secondary to dementia and chronic small vessel disease. We would recommend MRI of the brain to rule out acute intracranial process. Neuro checks every 4 hours. Continue home medications. Monitor blood pressure and blood glucose. Recommend EEG to rule out underlying seizure activity. Further recommendation depends on the results of the testing. We will continue medical management per primary team and we will continue to follow. Thank you for the consult. Job ID: [id number] MTDD
--- NOTE | 2019-09-25 14:07 | MRI ---
MRI OF BRAIN WITHOUT CONTRAST: 09/25/19 INDICATIONS: Mental status change. Assess for stroke. Correlation made to prior CT. The most recent being 09/24/19. CT scans have described hyperdensities i n the brain stem at the level of afshin consistent with cavernous hemangiomas. FINDINGS: The ventricles have normal size and position. Moderately severe chronic ischemic white matter changes are noted on FLAIR sequence. There is evidence of a focus of restricted diffusion in the brain stem to the right of midline at the quadrigeminal plate. This could be artifactual, however, it does show loss of signal on ADC map and therefore tiny brain stem infarct cannot be excluded. No other evidence of restricted diffusion. There are numerous foci of susceptibility artifact seen in the brain stem on gradient echo. These are consistent with multiple cavernous hemangiomas which have been previously noted. There are four larg er ones which measure up to 1 cm each which exhibit hemosiderin rings and internal heterogeneity cons istent with cavernous hemangiomas. The intracranial internal carotid arteries proximal cerebral arteries and basilar arteries demonstrat e flow voids. Paranasal sinuses are clear. IMPRESSION: 1. Moderately severe chronic ischemic white matter changes. 2. Evidence of a tiny focus of acute or subacute brain stem infarct at the quadrigeminal plate o n the right as described above. 3. Multiple brain stem cavernous hemangiomas again noted. POS: AH
--- NOTE | 2019-09-25 19:33 | ULT ---
BILATERAL CAROTID DUPLEX ULTRASOUND: HISTORY: Stroke TECHNIQUE: Grayscale, color-flow and spectral Doppler ultrasound imaging of the extracranial carotid artery syst ems and vertebral arteries was performed bilaterally. FINDINGS: No large amount of echogenic plaque is seen involving the common carotid or internal carotid arteries . The peak systolic velocity in the right ICA measures 78.5 cm/s. The peak systolic velocity in the ri ght CCA measures 87.9 cm/s. The peak systolic velocity in the left ICA measures 65.5 cm/s. The peak systolic velocity in the l eft CCA measures 81.2 cm/s. The right IC/CC ration is0.9. The left IC/CC ratio is 0.8. Vertebral flow: antegrade, bilaterally. . IMPRESSION: No hemodynamically significant stenosis of the left or right cervical carotid artery.
[2019-09-25] MEDS: Montelukast Sodium 10 mg Tablet PO SCH (20:51)
[2019-09-25] MEDS ORDERED: Simvastatin 5 MG TAB PO SCH (21:00)
[2019-09-25] MEDS ORDERED: Prevnar 13-Val Conj/PF 0.5 ML SYRINGE IM ONE (21:00)
[2019-09-26] MEDS: Thyroid 60 MG TAB PO SCH (09:42)
[2019-09-26] MEDS: PARoxetine 20 MG TAB PO SCH (09:42)
[2019-09-26] MEDS: Carvedilol 6.25 MG TAB PO SCH ×2 (09:43→21:22)
[2019-09-26] MEDS: Potassium Chloride 10 MEQ TAB PO SCH (09:43)
[2019-09-26] MEDS: Fluticasone Propionate Nasal Spray 16 gm Bottle NASAL SCH ×2 (09:44→21:22)
[2019-09-26] MEDS: Spironolactone 25 MG TAB PO SCH (09:44)
--- NOTE | 2019-09-26 11:44 | PDOC.HOSPP ---
- Subjective Encounter Date: 09/26/19 Subjective: NEUROLOGY PROGRESS NOTE Patient alert and able to follow commands. MRI brain positive for acute tiny brain stem infarcts. EEG negative. - Objective Vital Signs & Weight: Vital Signs (12 hours) Temp Pulse Resp BP BP BP Pulse Ox 09/26/19 11:00 97.7 F 53 L 22 H 115/55 L 99 09/26/19 10:28 121/54 L 09/26/19 09:43 121/66 09/26/19 07:22 98.1 F 61 17 121/66 98 09/26/19 04:00 98.8 F 54 L 14 131/65 98 09/26/19 00:00 98.6 F 58 L 16 131/68 100 Weight Admit Weight 205 lb 14.4 oz Weight 205 lb 14.4 oz I&O: 09/25/19 09/26/19 09/27/19 06:59 06:59 06:59 Intake Total 400 596 Balance 400 596 Result Diagrams: 09/24/19 17:28 09/24/19 17:28 Radiology Reviewed by me: Yes EKG Reviewed by me: Yes Hospitalist ROS - Review of Systems Constitutional: denies: fever, chills, sweats, weakness, malaise, other Eyes: denies: pain, vision change, conjunctivae inflammation, eyelid inflammation, redness, other ENT: denies: ear pain, ear discharge, nose pain, nose discharge, nose congestion , mouth pain, mouth swelling, throat pain, throat swelling, other Respiratory: denies: cough, dry, shortness of breath, hemoptysis, SOB with excertion, pleuritic pain, sputum, wheezing, other Cardiovascular: denies: chest pain, palpitations, orthopnea, paroxysmal noc. dyspnea, edema, light headedness, other Gastrointestinal: denies: nausea, vomiting, abdominal pain, diarrhea, constipation, melena, hematochezia, other Genitourinary: denies: dysuria, frequency, incontinence, hematuria, retention, other Musculoskeletal: denies: neck pain, shoulder pain, arm pain, back pain, hand pain, leg pain, foot pain, other Skin: denies: rash, lesions, noemy, bruising, other Neurological: reports: confusion. denies: weakness, numbness, incoordination, change in speech, seizures, other - Medication Medications: Active Medications Generic Name Dose Route Start Last Admin Trade Name Alberto PRN Reason Stop Dose Admin Carvedilol 12.5 mg 09/25/19 09:00 09/26/19 09:43 Coreg PO 12.5 mg BID RUIZ Administration Fluticasone Propionate 0 gm 09/25/19 09:00 09/26/19 09:44 Flonase Nasal [place] NASAL 1 spr BID RUIZ Administration Montelukast Sodium 10 mg 09/25/19 21:00 09/25/19 20:51 Singulair PO 10 mg QPM RUIZ Administration Pantoprazole Sodium 40 mg 09/25/19 09:00 09/26/19 09:42 Protonix PO 40 mg DAILY RUIZ Administration Paroxetine HCl 10 mg 09/25/19 09:00 09/26/19 09:42 Paxil PO 10 mg DAILY RUIZ Administration Potassium Chloride 10 meq 09/25/19 09:00 09/26/19 09:43 Klor-Con 10 PO 10 meq DAILY RUIZ Administration Simvastatin 10 mg 09/25/19 21:00 09/25/19 20:51 Zocor PO 10 mg HS RUIZ Administration Sodium Chloride 10 ml 09/25/19 09:00 09/26/19 09:44 Flush - Normal Saline IVF 10 ml Q12HR RUIZ Administration Spironolactone 25 mg 09/25/19 08:00 09/26/19 09:44 Aldactone PO 25 mg QAM-WM RUIZ Administration Thyroid 60 mg 09/25/19 09:00 09/26/19 09:42 [place] Thyroid PO 60 mg DAILY RUIZ Administration - Exam General Appearance: awake alert Eye: PERRL ENT: normocephalic atraumatic Neck: supple Heart: RRR Respiratory: CTAB Gastrointestinal: soft Extremities: no cyanosis Skin: normal turgor Neurological: no focal deficits, no new deficit Musculoskeletal: normal tone, normal strength, no muscle wasting Psychiatric: normal affect, normal behavior, A&O x 3, oriented to person, oriented to place, oriented to time Hosp A/P (1) Acute CVA (cerebrovascular accident) Code(s): I63.9 - CEREBRAL INFARCTION, UNSPECIFIED Status: Acute (2) AMS (altered mental status) Code(s): R41.82 - ALTERED MENTAL STATUS, UNSPECIFIED Status: Acute - Plan PT/OT, speech therapy, DVT proph w/SCDs 69 year old presented with altered mental status. Mental status improved today. EEG reviewed and was negative for underlying seizure activity. MRI brain reviewed and was positive for acute tiny infarct in the brainstem. Recommend aspirin and high intensity statin for secondary stroke prevention. Telemetry. Recommend 2D echo and carotid dopplers. Neurochecks every 4 hours. PT/OT/Speech. Permissive BP control. Strict control of BG. Check FLP, TSH and HbA1c. PT/OT/Speech. Continue medical management per primary team. Plan discussed with patient and the floor team during MDR rounds.
--- NOTE | 2019-09-26 14:14 | PQF ---
CLINICAL DOCUMENTATION CLARIFICATION FORM: Dear Dr. Lazaro Portillo Date / Time: 09/26/2019 Please exercise your independent, professional judgment in responding to the clarification form. Clinical indicators are provided on the bottom of this form for your review Please check appropriate box(es): BMI > 40 with associated diagnosis of: (check one) [ x ] Morbid (Severe) Obesity [ x ] Due to excess calories [ ] Due to other: [ ] Overweight [ ] Obesity [ ] Other diagnosis [ ] Unable to determine In addition, please specify: Present on Admission (POA): [ x ] Yes [ ] No [ ] Unable to Determine For continuity of documentation, please document condition throughout progress notes and discharge summary. Thank You. To be completed by CDI/Coding staff for physician review: CLINICAL INDICATORS - SIGNS / SYMPTOMS / LABS / RESULTS AND LOCATION IN EMR H&P 09/23 ([place]) PE: General: This is an obese, elderly , female. alert,oriented cooperative. Nursing VS 09/23: Body Mass Index 40.1 RISK FACTORS / RESULTS AND LOCATION IN EMR H&P 09/23 ([place]) PMH CHF, HTN, R breast cancer. 09/25 ([place]) Acute CVA. AMS TREATMENTS / RESULTS AND LOCATION IN EMR Break Off Worker Consult 09/24 triggered due to unsure weight loss, likely due to AMS. ___ BMI < 18.5 w Under weight = 18.5 - 24.9 w Healthy = 25.0 - 29.9 w Slightly Overweight = 30.0 - 34.9 w Obese/Class I = 35.0 - 39.9 w Severely Obese/Class II = 40.0 and Over w Morbidly Obese/Class III Thank you, Mary Aponte RN, BSN [email or web address] This is a permanent part of the Medical Record [facility]
[2019-09-26] MEDS: Simvastatin 40 MG TAB PO SCH (21:22)
[2019-09-26] MEDS: Montelukast Sodium 10 mg Tablet PO SCH (21:22)
[2019-09-27 06:04] LABS: Cardiac Risk 2.8 (Less than 4.5)
[2019-09-27] MEDS: Spironolactone 25 MG TAB PO SCH (09:59)
[2019-09-27] MEDS: PARoxetine 20 MG TAB PO SCH (10:00)
[2019-09-27] MEDS: Potassium Chloride 10 MEQ TAB PO SCH (10:00)
[2019-09-27] MEDS: Aspirin Chewable 81 MG TAB PO SCH (10:00)
[2019-09-27] MEDS: Carvedilol 6.25 MG TAB PO SCH ×2 (10:01→21:02)
[2019-09-27] MEDS: Fluticasone Propionate Nasal Spray 16 gm Bottle NASAL SCH ×2 (10:04→21:00)
[2019-09-27] MEDS: Thyroid 60 MG TAB PO SCH (10:04)
--- NOTE | 2019-09-27 11:31 | PDOC.HOSPP ---
- Subjective Encounter Date: 09/27/19 Subjective: NEUROLOGY PROGRESS NOTE Patient alert and able to follow commands. MRI brain positive for acute tiny brain stem infarcts. EEG negative. Confusion improved. - Objective Vital Signs & Weight: Vital Signs (12 hours) Temp Pulse Resp BP BP Pulse Ox 09/27/19 10:01 127/66 09/27/19 08:00 97.6 F 60 16 107/56 L 96 09/27/19 04:00 97.5 F L 50 L 16 127/66 96 09/27/19 00:00 98.5 F 55 L 16 126/61 100 Weight Admit Weight 205 lb 14.4 oz Weight 205 lb 14.4 oz I&O: 09/26/19 09/27/19 09/28/19 06:59 06:59 06:59 Intake Total 596 Output Total 1100 Balance 596 -1100 Result Diagrams: 09/24/19 17:28 09/24/19 17:28 Radiology Reviewed by me: Yes EKG Reviewed by me: Yes Hospitalist ROS - Review of Systems ROS unobtainable: due to mental status - Medication Medications: Active Medications Generic Name Dose Route Start Last Admin Trade Name Freq PRN Reason Stop Dose Admin Aspirin 81 mg 09/27/19 09:00 09/27/19 10:00 Aspirin Chewable PO 81 mg DAILY RUIZ Administration Carvedilol 12.5 mg 09/25/19 09:00 09/27/19 10:01 Coreg PO 12.5 mg BID RUIZ Administration Fluticasone Propionate 0 gm 09/25/19 09:00 09/27/19 10:04 Flonase Nasal [place] NASAL 1 spr BID RUIZ Administration Montelukast Sodium 10 mg 09/25/19 21:00 09/26/19 21:22 Singulair PO 10 mg QPM RUIZ Administration Pantoprazole Sodium 40 mg 09/25/19 09:00 09/27/19 10:00 Protonix PO 40 mg DAILY RUIZ Administration Paroxetine HCl 10 mg 09/25/19 09:00 09/27/19 10:00 Paxil PO 10 mg DAILY RUIZ Administration Potassium Chloride 10 meq 09/25/19 09:00 09/27/19 10:00 Klor-Con 10 PO 10 meq DAILY RUIZ Administration Simvastatin 40 mg 09/26/19 21:00 09/26/19 21:22 Zocor PO 40 mg HS RUIZ Administration Sodium Chloride 10 ml 09/25/19 09:00 09/27/19 10:04 Flush - Normal Saline IVF 10 ml Q12HR RUIZ Administration Spironolactone 25 mg 09/25/19 08:00 09/27/19 09:59 Aldactone PO 25 mg QAM-WM RUIZ Administration Thyroid 60 mg 09/25/19 09:00 09/27/19 10:04 [place] Thyroid PO 60 mg DAILY RUIZ Administration - Exam General Appearance: awake alert Eye: PERRL ENT: normocephalic atraumatic Neck: supple Heart: RRR Respiratory: CTAB Gastrointestinal: soft Extremities: no cyanosis Skin: normal turgor Neurological: no new deficit Musculoskeletal: normal tone, no muscle wasting Psychiatric: normal affect, normal behavior, A&O x 3, oriented to person, oriented to place Hosp A/P (1) Acute CVA (cerebrovascular accident) Code(s): I63.9 - CEREBRAL INFARCTION, UNSPECIFIED Status: Acute (2) AMS (altered mental status) Code(s): R41.82 - ALTERED MENTAL STATUS, UNSPECIFIED Status: Acute - Plan PT/OT, speech therapy, DVT proph w/SCDs 69 year old presented with altered mental status. Mental status improved today. Most likely worsening dementia in the setting of acute lacunar infarction. EEG reviewed and was negative for underlying seizure activity. MRI brain reviewed and was positive for acute tiny infarct in the brainstem. Recommend aspirin and high intensity statin for secondary stroke prevention. Continue Telemetry. 2D echo and carotid dopplers unremarkable. Neurochecks every 4 hours. PT/OT/Speech. Strict control of BG and BG. PT/OT/Speech. CM on board regarding discharge planning. Continue medical management per primary team. Plan discussed with patient and the floor team during Stroke rounds.
[2019-09-27] MEDS: Simvastatin 40 MG TAB PO SCH (21:02)
[2019-09-27] MEDS: Montelukast Sodium 10 mg Tablet PO SCH (21:02)
[2019-09-28] MEDS: Aspirin Chewable 81 MG TAB PO SCH (09:51)
[2019-09-28] MEDS: Potassium Chloride 10 MEQ TAB PO SCH (09:52)
[2019-09-28] MEDS: PARoxetine 20 MG TAB PO SCH (09:53)
[2019-09-28] MEDS: Fluticasone Propionate Nasal Spray 16 gm Bottle NASAL SCH ×2 (09:55→20:53)
[2019-09-28] MEDS: Thyroid 60 MG TAB PO SCH (09:55)
[2019-09-28] MEDS ORDERED: Carvedilol 6.25 MG TAB PO SCH (11:45)
[2019-09-28] MEDS: Spironolactone 25 MG TAB PO SCH (12:19)
[2019-09-28] MEDS: Carvedilol 6.25 MG TAB PO SCH ×2 (12:23→20:53)
[2019-09-28] MEDS: Montelukast Sodium 10 mg Tablet PO SCH (20:52)
[2019-09-28] MEDS: Simvastatin 40 MG TAB PO SCH (20:53)
[2019-09-29] MEDS: Spironolactone 25 MG TAB PO SCH (09:21)
[2019-09-29] MEDS: Aspirin Chewable 81 MG TAB PO SCH (09:21)
[2019-09-29] MEDS: PARoxetine 20 MG TAB PO SCH (09:22)
[2019-09-29] MEDS: Potassium Chloride 10 MEQ TAB PO SCH (09:23)
[2019-09-29] MEDS: Fluticasone Propionate Nasal Spray 16 gm Bottle NASAL SCH ×2 (09:25→20:44)
[2019-09-29] MEDS: Thyroid 60 MG TAB PO SCH (09:25)
[2019-09-29] MEDS: Carvedilol 6.25 MG TAB PO SCH ×2 (10:38→20:44)
[2019-09-29] MEDS ORDERED: Milk Of Magnesia 30 ML UDCUP PO PRN (13:44)
[2019-09-29] MEDS: Montelukast Sodium 10 mg Tablet PO SCH (20:44)
[2019-09-29] MEDS: Simvastatin 40 MG TAB PO SCH (20:46)
[2019-09-30 05:44] LABS: Anion Gap 10 mmol/L (10-20); BUN (Urea Nitrogen) 14 mg/dL (9.8-20.1); Calc. Creatinine Clearance 114 mL/min (70-130); Calcium 8.7 mg/dL (7.8-10.44); Carbon Dioxide 28 mmol/L (23-31); Chloride 103 mmol/L (98-107); Estimated GFR-MDRD Greater than 90; Glucose 81 mg/dL (83-110); Potassium 4.5 mmol/L (3.5-5.1); Sodium 136 mmol/L (136-145)
[2019-09-30] MEDS: Thyroid 60 MG TAB PO SCH (09:48)
[2019-09-30] MEDS: Potassium Chloride 10 MEQ TAB PO SCH (09:49)
[2019-09-30] MEDS: Spironolactone 25 MG TAB PO SCH (09:49)
[2019-09-30] MEDS: Aspirin Chewable 81 MG TAB PO SCH (09:49)
[2019-09-30] MEDS: Fluticasone Propionate Nasal Spray 16 gm Bottle NASAL SCH ×2 (09:49→21:03)
[2019-09-30] MEDS: PARoxetine 20 MG TAB PO SCH (09:49)
[2019-09-30] MEDS: Carvedilol 6.25 MG TAB PO SCH ×2 (09:50→21:03)
--- NOTE | 2019-09-30 15:01 | PDOC.HOSPP ---
- Subjective Encounter Date: 09/30/19 Subjective: NEUROLOGY PROGRESS NOTE Patient alert and able to follow commands. Confusion resolved. - Objective Vital Signs & Weight: Vital Signs (12 hours) Temp Pulse Pulse Pulse Resp BP BP 09/30/19 12:00 98.2 F 55 L 18 09/30/19 09:49 09/30/19 09:06 56 L 56 L 133/70 131/73 09/30/19 07:41 98.0 F 51 L 16 09/30/19 04:30 98.0 F 61 20 BP Pulse Ox 09/30/19 12:00 128/69 96 09/30/19 09:49 96 09/30/19 09:06 09/30/19 07:41 129/71 99 09/30/19 04:30 159/84 H 98 Weight Admit Weight 205 lb 14.4 oz Weight 205 lb 14.4 oz I&O: 09/29/19 09/30/19 10/01/19 06:59 06:59 06:59 Intake Total 980 2400 Output Total 1400 2901 Balance -420 -501 Result Diagrams: 09/24/19 17:28 09/30/19 05:15 Radiology Reviewed by me: Yes EKG Reviewed by me: Yes Hospitalist ROS - Review of Systems Constitutional: denies: fever, chills, sweats, weakness, malaise, other Eyes: denies: pain, vision change, conjunctivae inflammation, eyelid inflammation, redness, other ENT: denies: ear pain, ear discharge, nose pain, nose discharge, nose congestion , mouth pain, mouth swelling, throat pain, throat swelling, other Respiratory: denies: cough, dry, shortness of breath, hemoptysis, SOB with excertion, pleuritic pain, sputum, wheezing, other Cardiovascular: denies: chest pain, palpitations, orthopnea, paroxysmal noc. dyspnea, edema, light headedness, other Gastrointestinal: denies: nausea, vomiting, abdominal pain, diarrhea, constipation, melena, hematochezia, other Genitourinary: denies: dysuria, frequency, incontinence, hematuria, retention, other Musculoskeletal: denies: neck pain, shoulder pain, arm pain, back pain, hand pain, leg pain, foot pain, other Skin: denies: rash, lesions, noemy, bruising, other Neurological: reports: seizures. denies: weakness, numbness, incoordination, change in speech, confusion, other - Medication Medications: Active Medications Generic Name Dose Route Start Last Admin Trade Name Alberto PRN Reason Stop Dose Admin Aspirin 81 mg 09/27/19 09:00 09/30/19 09:49 Aspirin Chewable PO 81 mg DAILY RUIZ Administration Carvedilol 6.25 mg 09/28/19 21:00 09/30/19 09:50 Coreg PO 6.25 mg BID RUIZ Administration Fluticasone Propionate 0 gm 09/25/19 09:00 09/30/19 09:49 Flonase Nasal [place] NASAL 1 spr BID RUIZ Administration Montelukast Sodium 10 mg 09/25/19 21:00 09/29/19 20:44 Singulair PO 10 mg QPM RUIZ Administration Pantoprazole Sodium 40 mg 09/25/19 09:00 09/30/19 09:49 Protonix PO 40 mg DAILY RUIZ Administration Paroxetine HCl 10 mg 09/25/19 09:00 09/30/19 09:49 Paxil PO 10 mg DAILY RUIZ Administration Potassium Chloride 10 meq 09/25/19 09:00 09/30/19 09:49 Klor-Con 10 PO 10 meq DAILY RUIZ Administration Simvastatin 40 mg 09/26/19 21:00 09/29/19 20:46 Zocor PO 40 mg HS RUIZ Administration Sodium Chloride 10 ml 09/25/19 09:00 09/30/19 09:50 Flush - Normal Saline IVF Not Given Q12HR RUIZ Spironolactone 25 mg 09/25/19 08:00 09/30/19 09:49 Aldactone PO 25 mg QAM-WM RUIZ Administration Thyroid 60 mg 09/25/19 09:00 09/30/19 09:48 [place] Thyroid PO 60 mg DAILY RUIZ Administration - Exam General Appearance: awake alert Eye: PERRL ENT: normocephalic atraumatic Neck: supple Heart: RRR Respiratory: CTAB Gastrointestinal: soft Extremities: no cyanosis Skin: normal turgor Neurological: no new deficit Musculoskeletal: normal tone Psychiatric: normal affect, normal behavior, A&O x 3, oriented to person, oriented to place, oriented to time Hosp A/P (1) Acute CVA (cerebrovascular accident) Code(s): I63.9 - CEREBRAL INFARCTION, UNSPECIFIED Status: Acute (2) AMS (altered mental status) Code(s): R41.82 - ALTERED MENTAL STATUS, UNSPECIFIED Status: Acute - Plan PT/OT, speech therapy, DVT proph w/SCDs 69 year old presented with altered mental status which is now resolved. . Most likely worsening dementia in the setting of acute lacunar infarction. Awaiting placement. CM on board regarding discharge planning. EEG reviewed and was negative for underlying seizure activity. MRI brain reviewed and was positive for acute tiny infarct in the brainstem. Continue aspirin and high intensity statin for secondary stroke prevention. Continue Telemetry. 2D echo and carotid dopplers unremarkable. Continue Neurochecks every 4 hours. PT/OT/Speech. Strict control of BG and BG. Continue medical management per primary team. Plan discussed with patient and the floor team during MDR rounds.
[2019-09-30] MEDS: Montelukast Sodium 10 mg Tablet PO SCH (21:03)
[2019-09-30] MEDS: Simvastatin 40 MG TAB PO SCH (21:04)
[2019-10-01] MEDS: Potassium Chloride 10 MEQ TAB PO SCH (09:26)
[2019-10-01] MEDS: Spironolactone 25 MG TAB PO SCH (09:26)
[2019-10-01] MEDS: PARoxetine 20 MG TAB PO SCH (09:26)
[2019-10-01] MEDS: Aspirin Chewable 81 MG TAB PO SCH (09:26)
[2019-10-01] MEDS: Carvedilol 6.25 MG TAB PO SCH ×2 (09:26→22:34)
[2019-10-01] MEDS: Thyroid 60 MG TAB PO SCH (09:27)
[2019-10-01] MEDS: Fluticasone Propionate Nasal Spray 16 gm Bottle NASAL SCH ×2 (09:27→22:34)
--- NOTE | 2019-10-01 14:12 | PDOC.HOSPP ---
- Subjective Encounter Date: 10/01/19 Subjective: NEUROLOGY PROGRESS NOTE Patient alert and able to follow commands. EEG negative. Confusion improved since admission.. - Objective Vital Signs & Weight: Vital Signs (12 hours) Temp Pulse Resp BP Pulse Ox 10/01/19 11:06 97.9 F 62 16 135/73 100 10/01/19 08:15 98 10/01/19 07:11 98.3 F 58 L 20 139/89 98 10/01/19 04:00 98.0 F 62 16 124/73 99 Weight Admit Weight 205 lb 14.4 oz Weight 205 lb 14.4 oz I&O: 09/30/19 10/01/19 10/02/19 06:59 06:59 06:59 Intake Total 2400 1250 300 Output Total 2901 1400 Balance -501 -150 300 Result Diagrams: 09/24/19 17:28 09/30/19 05:15 Radiology Reviewed by me: Yes EKG Reviewed by me: Yes Hospitalist ROS - Review of Systems Constitutional: denies: fever, chills, sweats, weakness, malaise, other Eyes: denies: pain, vision change, conjunctivae inflammation, eyelid inflammation, redness, other ENT: denies: ear pain, ear discharge, nose pain, nose discharge, nose congestion , mouth pain, mouth swelling, throat pain, throat swelling, other Respiratory: denies: cough, dry, shortness of breath, hemoptysis, SOB with excertion, pleuritic pain, sputum, wheezing, other Cardiovascular: denies: chest pain, palpitations, orthopnea, paroxysmal noc. dyspnea, edema, light headedness, other Gastrointestinal: denies: nausea, vomiting, abdominal pain, diarrhea, constipation, melena, hematochezia, other Genitourinary: denies: dysuria, frequency, incontinence, hematuria, retention, other Musculoskeletal: denies: neck pain, shoulder pain, arm pain, back pain, hand pain, leg pain, foot pain, other Neurological: denies: weakness, numbness, incoordination, change in speech, confusion, seizures, other - Medication Medications: Active Medications Generic Name Dose Route Start Last Admin Trade Name Freq PRN Reason Stop Dose Admin Aspirin 81 mg 09/27/19 09:00 10/01/19 09:26 Aspirin Chewable PO 81 mg DAILY RUIZ Administration Carvedilol 6.25 mg 09/28/19 21:00 10/01/19 09:26 Coreg PO 6.25 mg BID RUIZ Administration Fluticasone Propionate 0 gm 09/25/19 09:00 10/01/19 09:27 Flonase Nasal [place] NASAL 1 spr BID RUIZ Administration Montelukast Sodium 10 mg 09/25/19 21:00 09/30/19 21:03 Singulair PO 10 mg QPM RIUZ Administration Pantoprazole Sodium 40 mg 09/25/19 09:00 10/01/19 09:26 Protonix PO 40 mg DAILY RUIZ Administration Paroxetine HCl 10 mg 09/25/19 09:00 10/01/19 09:26 Paxil PO 10 mg DAILY RUIZ Administration Potassium Chloride 10 meq 09/25/19 09:00 10/01/19 09:26 Klor-Con 10 PO 10 meq DAILY RUIZ Administration Simvastatin 40 mg 09/26/19 21:00 09/30/19 21:04 Zocor PO 40 mg HS RUIZ Administration Sodium Chloride 10 ml 09/25/19 09:00 10/01/19 09:27 Flush - Normal Saline IVF Not Given Q12HR RUIZ Spironolactone 25 mg 09/25/19 08:00 10/01/19 09:26 Aldactone PO 25 mg QAM-WM RUIZ Administration Thyroid 60 mg 09/25/19 09:00 10/01/19 09:27 [place] Thyroid PO 60 mg DAILY RUIZ Administration - Exam General Appearance: awake alert Eye: PERRL ENT: normocephalic atraumatic Neck: supple Heart: RRR Respiratory: CTAB Gastrointestinal: soft Extremities: no cyanosis Skin: normal turgor Neurological: no new deficit Musculoskeletal: no muscle wasting Psychiatric: normal affect, normal behavior, A&O x 3 Hosp A/P (1) Acute CVA (cerebrovascular accident) Code(s): I63.9 - CEREBRAL INFARCTION, UNSPECIFIED Status: Acute (2) AMS (altered mental status) Code(s): R41.82 - ALTERED MENTAL STATUS, UNSPECIFIED Status: Acute - Plan PT/OT, speech therapy 69 year old presented with altered mental status which is now resolved. . Most likely worsening dementia in the setting of acute lacunar infarction. Clinically stable. She is awaiting placement. CM on board regarding discharge planning. EEG reviewed and was negative for underlying seizure activity. MRI brain reviewed and was positive for acute tiny infarct in the brainstem. Continue aspirin and high intensity statin for secondary stroke prevention. Continue Telemetry. 2D echo and carotid dopplers were unremarkable. Continue Neurochecks every 4 hours. PT/OT/Speech. Strict control of BG and BG. Continue medical management per primary team. Plan discussed with patient and the floor team during MDR rounds.
[2019-10-01] MEDS: Simvastatin 40 MG TAB PO SCH (22:33)
[2019-10-01] MEDS: Montelukast Sodium 10 mg Tablet PO SCH (22:34)
[2019-10-02] MEDS: Fluticasone Propionate Nasal Spray 16 gm Bottle NASAL SCH (08:52)
[2019-10-02] MEDS: Carvedilol 6.25 MG TAB PO SCH (08:52)
[2019-10-02] MEDS: Thyroid 60 MG TAB PO SCH (08:52)
[2019-10-02] MEDS: Aspirin Chewable 81 MG TAB PO SCH (08:52)
[2019-10-02] MEDS: Potassium Chloride 10 MEQ TAB PO SCH (08:52)
[2019-10-02] MEDS: PARoxetine 20 MG TAB PO SCH (08:52)
[2019-10-02] MEDS: Spironolactone 25 MG TAB PO SCH (08:53)
[2019-10-02 11:58] VITALS: BP 131/71; TEMP 98.2
--- NOTE | 2019-10-02 13:36 | PDOC.HOSPP ---
- Subjective Encounter Date: 10/02/19 Subjective: NEUROLOGY PROGRESS NOTE Patient alert and able to follow commands. Confusion resolved since admission.. - Objective Vital Signs & Weight: Vital Signs (12 hours) Temp Pulse Resp BP Pulse Ox 10/02/19 11:18 98.2 F 58 L 16 131/71 94 L 10/02/19 07:13 97.6 F 57 L 16 121/70 98 10/02/19 05:00 97.5 F L 54 L 14 132/87 96 Weight Admit Weight 205 lb 14.4 oz Weight 205 lb 14.4 oz I&O: 10/01/19 10/02/19 10/03/19 06:59 06:59 06:59 Intake Total 1250 660 Output Total 1400 875 400 Balance -150 -215 -400 Result Diagrams: 09/24/19 17:28 09/30/19 05:15 Radiology Reviewed by me: Yes EKG Reviewed by me: Yes Hospitalist ROS - Review of Systems Constitutional: denies: fever, chills, sweats, weakness, malaise, other Eyes: denies: pain, vision change, conjunctivae inflammation, eyelid inflammation, redness, other ENT: denies: ear pain, ear discharge, nose pain, nose discharge, nose congestion , mouth pain, mouth swelling, throat pain, throat swelling, other Respiratory: denies: cough, dry, shortness of breath, hemoptysis, SOB with excertion, pleuritic pain, sputum, wheezing, other Cardiovascular: denies: chest pain, palpitations, orthopnea, paroxysmal noc. dyspnea, edema, light headedness, other Gastrointestinal: denies: nausea, vomiting, abdominal pain, diarrhea, constipation, melena, hematochezia, other Genitourinary: denies: dysuria, frequency, incontinence, hematuria, retention, other Musculoskeletal: denies: neck pain, shoulder pain, arm pain, back pain, hand pain, leg pain, foot pain, other Skin: denies: rash, lesions, noemy, bruising, other - Exam General Appearance: awake alert Eye: PERRL ENT: normocephalic atraumatic Neck: supple Heart: RRR Respiratory: CTAB Gastrointestinal: soft Extremities: no cyanosis Skin: normal turgor Neurological: no new deficit Psychiatric: normal affect, normal behavior, oriented to person, oriented to place Hosp A/P (1) Acute CVA (cerebrovascular accident) Code(s): I63.9 - CEREBRAL INFARCTION, UNSPECIFIED Status: Acute (2) AMS (altered mental status) Code(s): R41.82 - ALTERED MENTAL STATUS, UNSPECIFIED Status: Acute - Plan PT/OT, speech therapy, DVT proph w/SCDs 69 year old presented with altered mental status which is now resolved. . Most likely worsening dementia in the setting of acute lacunar infarction. She is clinically stable. She is awaiting placement. CM on board regarding discharge planning. EEG reviewed and was negative for underlying seizure activity. MRI brain reviewed and was positive for acute tiny infarct in the brainstem. Continue aspirin and high intensity statin for secondary stroke prevention. Continue Telemetry. 2D echo and carotid dopplers were unremarkable. Continue Neurochecks every 4 hours. PT/OT/Speech on board. Strict control of BG and BG. Continue medical management per primary team.
--- NOTE | 2019-10-03 07:08 | PQF ---
CLINICAL DOCUMENTATION CLARIFICATION FORM: Dear : Aleks Mcgill Date / Time: 10/03/19 0707 Please exercise your independent, professional judgment in responding to the clarification form. Clinical indicators are provided on the bottom of this form for your review Please check appropriate box(es): [x ] Encephalopathy: Etiology: [ ] Metabolic [ ] Toxic [ x ] In the setting of underlying dementia [ ] Unspecified [ x ] Other (please specify) _acute lacunar cva [ ] Transient Alteration of Awareness [ ] Other diagnosis [ ] Unable to determine In addition, please specify: Present on Admission (POA): [ x ] Yes [ ] No [ ] Unable to determine Physician Signature: aleks mcgill Date/Time:10/03/2019 8:01 For continuity of documentation, please document condition throughout progress notes and discharge summary. Thank You. To be completed by CDI/Coding staff for physician review: Present Clinical Indicators - Signs / Symptoms / Labs Results and Location in Medical Record [X] GCS 15, NIHSS 1 ED notes p3 09/24 [X] MRI brain Impression: Acute or subacute brain stem infarct Imaging Dr Cox 09/24 [X] BP 144/66, Pulse 50, resp 16, Temp 97.3 Vital signs 09/23 [X] Family states has been confused since the previous Monday H&P p1 09/23 Dr Portillo [X] change to garbled speech, complaints of numbness in her extremities H&P p1 09/23 Dr Portillo [X] Progressive altered mental status wihtout acute findings, probable dementia H&P p3 09/23 Dr Portillo [X] Noncompliance with medication H&P p3 09/23 Dr Portillo [X] Lacunar infarct HPN p3 09/25 Dr Mcgill Present Risk Factors Results and Location in Medical Record [X] 69 year-old Female H&P p1 09/23 Dr Portillo [X] HTN H&P p1 09/23 Dr Portillo [X] CHF H&P p1 09/23 Dr Portillo [X] Hx breast cancer H&P p1 09/23 Dr Portillo [X] hypothyroidism H&P p1 09/23 Dr Portillo [X] Obesity H&P p1 09/23 Dr Portillo [X] DM Consult 09/24 [X] Dementia PN 10/01 Present Treatments Results and Location in Medical Record [X] IVF NS 1L MAY 03 [X] Aspirin Chewable MAY 03 [X] Paxil 10 mg oral MAY 03 [X] Potassium Chloride 10 meq MAY 03 [X] CT brain Imaging Dr Cox 09/23 [X] MRI brain Imaging Dr Cox 09/24 [X] Neurology consult Consult Aleks Malagon CDS/[employer] Signature: Char Talamantes Phone #: ext [phone] Date/Time: 10/03/19 0772 This is a permanent part of the Medical Record [facility]
== END 2019-10-02 13:15 | DRG 65 ==
LOC: ERS 16:29 → OBSVTOIN 18:34 → 2SE 18:34
PROVIDERS: ADMIT Specialist; ATTEND Specialist
DX: I63.81 Other cerebral infarction due to occlusion or stenosis of small artery (principal); Z68.41 Body mass index [BMI] 40.0-44.9, adult; G93.49 Other encephalopathy; E78.5 Hyperlipidemia, unspecified; M19.90 Unspecified osteoarthritis, unspecified site; K21.9 Gastro-esophageal reflux disease without esophagitis; E89.0 Postprocedural hypothyroidism; F03.90 Unspecified dementia, unspecified severity, without behavioral disturbance, psychotic disturbance, mood disturbance, and anxiety; E11.9 Type 2 diabetes mellitus without complications; E66.01 Morbid (severe) obesity due to excess calories; R20.0 Anesthesia of skin; I50.9 Heart failure, unspecified; I11.0 Hypertensive heart disease with heart failure; R29.701 NIHSS score 1; R40.2362 Coma scale, best motor response, obeys commands, at arrival to emergency department; R40.2142 Coma scale, eyes open, spontaneous, at arrival to emergency department; R40.2252 Coma scale, best verbal response, oriented, at arrival to emergency department; Z20.828 Contact with and (suspected) exposure to other viral communicable diseases; Z90.49 Acquired absence of other specified parts of digestive tract; Z85.3 Personal history of malignant neoplasm of breast; Z90.11 Acquired absence of right breast and nipple; Z79.899 Other long term (current) drug therapy; Z79.51 Long term (current) use of inhaled steroids; Z91.14 Patient's other noncompliance with medication regimen; Z28.21 Immunization not carried out because of patient refusal
CPT/HCPCS: 36415; 36416; 51701; 70450; 70551; 80048; 80053; 80061; 81003; 82533; 82550; 83036; 83690; 84443; 84484; 85025; 87635; 93005; 93306; 93880; 95712; 95819; 95957; G0378; U0003

== ENCOUNTER 2020-07-14 11:15 | Outpatient (CLI) | payer MEDICARE | END 2020-07-14 11:16 | disposition home or self-care (01) | LOC: BICMAMMO 11:15 | PROVIDERS: ATTEND Specialist | DX: Z12.31 Encounter for screening mammogram for malignant neoplasm of breast (principal); Z80.3 Family history of malignant neoplasm of breast; Z85.3 Personal history of malignant neoplasm of breast; Z98.890 Other specified postprocedural states | CPT/HCPCS: 77063; 77067 ==

== ENCOUNTER 2021-03-16 02:56 | Emergency (ER) | payer MEDICARE ==
[2021-03-16] MEDS ORDERED: Ondansetron ODT 4 MG TAB ONE (03:13)
[2021-03-16] MEDS ORDERED: Acetaminophen 500 MG TAB ONE (05:16)
[2021-03-16] MEDS ORDERED: Ondansetron ODT 8 MG TAB ONE (05:16)
[2021-03-16 05:47] LABS: Hemoglobin 14.2 g/dL (12.0-16.0); Mean Corpuscular HGB CONC 30.6 g/dL (32.0-36.0); Mean Corpuscular Hemoglobin 25.9 pg (27.0-31.0); Mean Corpuscular Volume 84.8 fL (78.0-98.0); RBC Distribution Width 12.9 % (11.5-14.5); Red Blood Cell (RBC) Count 5.46 mill/uL (4.20-5.40)
[2021-03-16 05:56] LABS: Mean Platelet Volume 7.1 fL (7.4-10.4); Platelet Count 230 thou/uL (130-400); White Blood Cell (WBC) Count 7.7 thou/uL (4.8-10.8)
[2021-03-16 05:57] LABS: Band 3 % (5-11); Lymphocytes 16 % (21-51); MDiff Complete? YES; Monocytes 6 % (0-10); Neutrophil 75 % (42-75)
[2021-03-16 06:02] LABS: ALT (SGPT) 19 U/L (8-55); AST (SGOT) 22 U/L (5-34); Albumin 3.4 g/dL (3.4-4.8); Alkaline Phosphatase 140 U/L (40-110); Anion Gap 16 mmol/L (10-20); BUN (Urea Nitrogen) 6 mg/dL (9.8-20.1); Bilirubin, Total 0.9 mg/dL (0.2-1.2); Calc. Creatinine Clearance 0 mL/min (70-130); Carbon Dioxide 17 mmol/L (23-31); Chloride 94 mmol/L (98-107); Globulin 3.5 g/dL (2.4-3.5); Glucose 96 mg/dL (83-110); Potassium 4.4 mmol/L (3.5-5.1); Protein, Total 6.9 g/dL (5.8-8.1); Sodium 123 mmol/L (136-145)
[2021-03-16 18:38] LABS: SARS-CoV-2 PCR by NAA Not Detected (NotDetected)
== END 2021-03-16 07:05 | disposition home or self-care (01) ==
LOC: ERS 02:56
DX: R51.9 Headache, unspecified (principal); R11.0 Nausea; Z20.822 Contact with and (suspected) exposure to COVID-19; I11.0 Hypertensive heart disease with heart failure; I50.9 Heart failure, unspecified; E78.5 Hyperlipidemia, unspecified; E03.9 Hypothyroidism, unspecified; M19.90 Unspecified osteoarthritis, unspecified site; Z79.82 Long term (current) use of aspirin; Z79.899 Other long term (current) drug therapy
CPT/HCPCS: 70450; 80053; 85025; 93005; U0003; U0005; 36415; Q0162

== ENCOUNTER 2021-08-04 12:37 | Outpatient (CLI) | payer MEDICARE, MEDICAID | END 2021-08-04 12:38 | disposition home or self-care (01) | LOC: BICMAMMO 12:37 | PROVIDERS: ATTEND Family Medicine | DX: Z12.31 Encounter for screening mammogram for malignant neoplasm of breast (principal); Z80.3 Family history of malignant neoplasm of breast; Z85.3 Personal history of malignant neoplasm of breast; Z98.890 Other specified postprocedural states | CPT/HCPCS: 77063; 77067 ==

== ENCOUNTER 2022-03-18 17:02 | Inpatient (IN) | payer OTHER ==
[2022-03-18 17:58] LABS: #Eosinphils 0.2 thou/uL (0.0-0.7); #Lymphocytes 1.7 thou/uL (1.20-3.40); #Monocytes 0.6 thou/uL (0.11-0.59); #Neutrophils 4.2 thou/uL (1.40-6.50); %Basophils 0.5 % (0.0-1.0); %Eosinophils 2.8 % (0.0-10.0); %Lymphocytes 25.1 % (21.0-51.0); %Neutrophils 62.6 % (42.0-75.0); Hemoglobin 13.9 g/dL (12.0-16.0); Mean Corpuscular HGB CONC 33.5 g/dL (32.0-36.0); Mean Corpuscular Hemoglobin 28.5 pg (27.0-31.0); Mean Corpuscular Volume 85.3 fl (78.0-98.0); Mean Platelet Volume 7.6 fL (7.4-10.4); Platelet Count 294 10x3/uL (130-400); RBC Distribution Width 12.7 % (11.5-14.5); Red Blood Cell (RBC) Count 4.86 mill/uL (4.20-5.40); White Blood Cell (WBC) Count 6.7 10x3/uL (4.8-10.8)
[2022-03-18 18:21] LABS: ALT (SGPT) 28 U/L (8-55); AST (SGOT) 30 U/L (5-34); Albumin 3.7 g/dL (3.4-4.8); Alkaline Phosphatase 122 U/L (40-110); Anion Gap 12 mmol/L (10-20); BUN (Urea Nitrogen) 6 mg/dL (9.8-20.1); Bilirubin, Total 1.3 mg/dL (0.2-1.2); Calc. Creatinine Clearance 0 mL/min (70-130); Calcium 9.3 mg/dL (7.8-10.44); Carbon Dioxide 25 mmol/L (23-31); Chloride 93 mmol/L (98-107); Estimated GFR 95; Globulin 3.4 g/dL (2.4-3.5); Glucose 91 mg/dL (83-110); Potassium 4.4 mmol/L (3.5-5.1); Protein, Total 7.1 g/dL (5.8-8.1); Sodium 126 mmol/L (136-145)
[2022-03-18 20:17] LABS: SARS-CoV-2 NAA Rapid Test Not Detected (NotDetected)
[2022-03-18 21:09] LABS: Bacteria/HPF 4+ HPF (None Seen); Bilirubin Negative (Negative); Blood, Urine Negative (Negative); Clarity Turbid (Clear); Glucose, Urine (Dipstick) Normal (Negative); Ketone, Urine 20 mg/dL (Negative); Leukocyte 500 Leu/uL (Negative); Nitrite Negative (Negative); Protein, Urine (Dipstick) Negative (Neg-Trace); RBC/HPF 0-3 HPF (0-3); Specific Gravity, Urine 1.016 (1.002-1.036); Squamous Epithelial 0-3 HPF (0-3); Urobilinogen 3 mg/dL (Less than 2); WBC/HPF Greater than 50 HPF (0-3)
[2022-03-18] MEDS ORDERED: cefTRIAXone\\ROCEPHIN 2 GM VIAL ONE (21:39)
[2022-03-18 21:59] LABS: Lactic Acid 1.3 mmol/L (0.5-2.2)
[2022-03-18] MEDS ORDERED: Ketorolac Tromethamine 30 MG/ML VIAL ONE (22:23)
[2022-03-19] MEDS ORDERED: Sodium Chloride 0.9% 1,000 ML IV SCH (01:30)
[2022-03-19] MEDS ORDERED: Ondansetron ODT 4 MG TAB SL PRN (01:30)
[2022-03-19] MEDS ORDERED: Ondansetron PF 4 MG/2 ML Vial IVP PRN (01:30)
[2022-03-19 01:53] VITALS: BMI 46.2
[2022-03-19] MEDS: Thyroid 60 MG TAB PO SCH (08:09)
[2022-03-19] MEDS: Aspirin 81 mg Enteric Coated Tablet PO SCH (10:08)
[2022-03-19] MEDS: Acetaminophen 325 MG TAB PO PRN (10:08)
[2022-03-19] MEDS: Famotidine 20 MG TAB PO SCH ×2 (10:08→20:54)
[2022-03-19] MEDS: Fluticasone Propionate Nasal Spray 16 gm Bottle NASAL SCH (13:15)
[2022-03-19] MEDS: Sodium Chloride 0.9% 1,000 ML IV SCH (16:01)
[2022-03-19] MEDS: Atorvastatin Calcium 10 MG TAB PO SCH (20:54)
[2022-03-19] MEDS: Montelukast Sodium 10 mg Tablet PO SCH (20:54)
[2022-03-19] MEDS ORDERED: cefTRIAXone\\ROCEPHIN 2 GM in Sodium Chloride 0.9% 100 ML IVPB SCH (22:00)
[2022-03-20 06:09] LABS: #Eosinphils 0.3 thou/uL (0.0-0.7); #Lymphocytes 2.1 thou/uL (1.20-3.40); #Monocytes 0.7 thou/uL (0.11-0.59); #Neutrophils 2.7 thou/uL (1.40-6.50); %Basophils 0.6 % (0.0-1.0); %Eosinophils 4.9 % (0.0-10.0); %Lymphocytes 36.1 % (21.0-51.0); %Monocytes 11.4 % (0.0-10.0); Hemoglobin 12.3 g/dL (12.0-16.0); Mean Corpuscular HGB CONC 32.3 g/dL (32.0-36.0); Mean Corpuscular Hemoglobin 28.3 pg (27.0-31.0); Mean Corpuscular Volume 87.5 fl (78.0-98.0); Mean Platelet Volume 7.6 fL (7.4-10.4); Platelet Count 267 10x3/uL (130-400); RBC Distribution Width 13.1 % (11.5-14.5); Red Blood Cell (RBC) Count 4.33 mill/uL (4.20-5.40); White Blood Cell (WBC) Count 5.7 10x3/uL (4.8-10.8)
[2022-03-20] MEDS: Sodium Chloride 0.9% 1,000 ML IV SCH ×4 (06:15→23:41)
[2022-03-20 06:32] LABS: Anion Gap 10 mmol/L (10-20); BUN (Urea Nitrogen) 10 mg/dL (9.8-20.1); Calc. Creatinine Clearance 175 mL/min (70-130); Calcium 8.5 mg/dL (7.8-10.44); Carbon Dioxide 25 mmol/L (23-31); Chloride 102 mmol/L (98-107); Estimated GFR 96; Glucose 79 mg/dL (83-110); Potassium 4.3 mmol/L (3.5-5.1); Sodium 133 mmol/L (136-145)
[2022-03-20] MEDS: Fluticasone Propionate Nasal Spray 16 gm Bottle NASAL SCH (09:23)
[2022-03-20] MEDS: Aspirin 81 mg Enteric Coated Tablet PO SCH (09:24)
[2022-03-20] MEDS: Famotidine 20 MG TAB PO SCH ×2 (09:24→20:11)
[2022-03-20] MEDS: Thyroid 60 MG TAB PO SCH (09:24)
[2022-03-20] MEDS: Montelukast Sodium 10 mg Tablet PO SCH (20:11)
[2022-03-20] MEDS: Sulfameth/Trimethoprim DS 800-160mg TAB PO SCH (20:11)
[2022-03-20] MEDS: Atorvastatin Calcium 10 MG TAB PO SCH (20:12)
[2022-03-21 05:40] LABS: #Eosinphils 0.4 thou/uL (0.0-0.7); #Lymphocytes 2.4 thou/uL (1.20-3.40); #Monocytes 0.7 thou/uL (0.11-0.59); #Neutrophils 3.7 thou/uL (1.40-6.50); %Basophils 0.5 % (0.0-1.0); %Eosinophils 5.6 % (0.0-10.0); %Monocytes 9.3 % (0.0-10.0); %Neutrophils 51.6 % (42.0-75.0); Hemoglobin 12.5 g/dL (12.0-16.0); Mean Corpuscular HGB CONC 31.7 g/dL (32.0-36.0); Mean Corpuscular Hemoglobin 27.9 pg (27.0-31.0); Mean Platelet Volume 7.8 fL (7.4-10.4); Platelet Count 273 10x3/uL (130-400); RBC Distribution Width 13.3 % (11.5-14.5); Red Blood Cell (RBC) Count 4.49 mill/uL (4.20-5.40); White Blood Cell (WBC) Count 7.1 10x3/uL (4.8-10.8)
[2022-03-21 05:59] LABS: Hemoglobin A1c 5.6 % (4.0-6.0)
[2022-03-21 06:08] LABS: Anion Gap 9 mmol/L (10-20); BUN (Urea Nitrogen) 10 mg/dL (9.8-20.1); Calc. Creatinine Clearance 166 mL/min (70-130); Calcium 8.8 mg/dL (7.8-10.44); Carbon Dioxide 25 mmol/L (23-31); Cardiac Risk 2.9 (Less than 4.5); Chloride 101 mmol/L (98-107); Cholesterol 121 mg/dl (< 200 Desired); Estimated GFR 95; Glucose 80 mg/dL (83-110); HDL Cholesterol 42 mg/dL (>60 Neg Risk); LDL Cholesterol, Calculated 65 mg/dL; Potassium 4.4 mmol/L (3.5-5.1); Sodium 131 mmol/L (136-145); Triglycerides 68 mg/dL (Less than 150)
[2022-03-21] MEDS: Fluticasone Propionate Nasal Spray 16 gm Bottle NASAL SCH (09:28)
[2022-03-21] MEDS: Thyroid 60 MG TAB PO SCH (09:29)
[2022-03-21] MEDS: Famotidine 20 MG TAB PO SCH ×2 (09:29→20:57)
[2022-03-21] MEDS: Aspirin 81 mg Enteric Coated Tablet PO SCH (09:30)
[2022-03-21] MEDS: Sulfameth/Trimethoprim DS 800-160mg TAB PO SCH ×2 (09:30→20:57)
[2022-03-21] MEDS: Sodium Chloride 0.9% 1,000 ML IV SCH ×2 (10:00→21:11)
[2022-03-21] MEDS: Atorvastatin Calcium 10 MG TAB PO SCH (20:57)
[2022-03-21] MEDS: Montelukast Sodium 10 mg Tablet PO SCH (20:57)
[2022-03-22 06:43] LABS: Anion Gap 12 mmol/L (10-20); BUN (Urea Nitrogen) 8 mg/dL (9.8-20.1); Calc. Creatinine Clearance 156 mL/min (70-130); Calcium 9.3 mg/dL (7.8-10.44); Carbon Dioxide 25 mmol/L (23-31); Chloride 99 mmol/L (98-107); Estimated GFR 93; Glucose 80 mg/dL (83-110); Potassium 4.5 mmol/L (3.5-5.1); Sodium 131 mmol/L (136-145)
[2022-03-22] MEDS: Sodium Chloride 0.9% 1,000 ML IV SCH ×3 (06:53→20:28)
[2022-03-22] MEDS: Sulfameth/Trimethoprim DS 800-160mg TAB PO SCH ×2 (09:19→20:26)
[2022-03-22] MEDS: Aspirin 81 mg Enteric Coated Tablet PO SCH (09:19)
[2022-03-22] MEDS: Thyroid 60 MG TAB PO SCH (09:19)
[2022-03-22] MEDS: Famotidine 20 MG TAB PO SCH ×2 (09:19→20:26)
[2022-03-22] MEDS: Fluticasone Propionate Nasal Spray 16 gm Bottle NASAL SCH (18:45)
[2022-03-22] MEDS: Atorvastatin Calcium 10 MG TAB PO SCH (20:25)
[2022-03-22] MEDS: Montelukast Sodium 10 mg Tablet PO SCH (20:26)
[2022-03-23 06:32] LABS: #Basophils 0.1 thou/uL (0.0-0.2); #Eosinphils 0.6 thou/uL (0.0-0.7); #Lymphocytes 1.6 thou/uL (1.20-3.40); #Monocytes 0.7 thou/uL (0.11-0.59); %Basophils 0.8 % (0.0-1.0); %Eosinophils 8.2 % (0.0-10.0); %Lymphocytes 23.5 % (21.0-51.0); %Monocytes 10.1 % (0.0-10.0); %Neutrophils 57.5 % (42.0-75.0); Hemoglobin 12.6 g/dL (12.0-16.0); Mean Corpuscular HGB CONC 31.5 g/dL (32.0-36.0); Mean Corpuscular Hemoglobin 27.1 pg (27.0-31.0); Mean Corpuscular Volume 86.2 fl (78.0-98.0); Mean Platelet Volume 7.6 fL (7.4-10.4); Platelet Count 254 10x3/uL (130-400); RBC Distribution Width 13.2 % (11.5-14.5); Red Blood Cell (RBC) Count 4.64 mill/uL (4.20-5.40); White Blood Cell (WBC) Count 6.9 10x3/uL (4.8-10.8)
[2022-03-23 06:47] LABS: Anion Gap 10 mmol/L (10-20); BUN (Urea Nitrogen) 11 mg/dL (9.8-20.1); Calc. Creatinine Clearance 153 mL/min (70-130); Calcium 8.9 mg/dL (7.8-10.44); Carbon Dioxide 26 mmol/L (23-31); Chloride 98 mmol/L (98-107); Estimated GFR 93; Glucose 81 mg/dL (83-110); Potassium 4.3 mmol/L (3.5-5.1); Sodium 130 mmol/L (136-145)
[2022-03-23] MEDS: Thyroid 60 MG TAB PO SCH (09:14)
[2022-03-23] MEDS: Aspirin 81 mg Enteric Coated Tablet PO SCH (09:14)
[2022-03-23] MEDS: Fluticasone Propionate Nasal Spray 16 gm Bottle NASAL SCH (09:15)
[2022-03-23] MEDS: Famotidine 20 MG TAB PO SCH ×2 (09:15→20:40)
[2022-03-23] MEDS: Sulfameth/Trimethoprim DS 800-160mg TAB PO SCH ×2 (09:15→20:40)
[2022-03-23] MEDS: Acetaminophen 325 MG TAB PO PRN (09:15)
[2022-03-23] MEDS: Sodium Chloride 0.9% 1,000 ML IV SCH (10:03)
[2022-03-23] MEDS: Atorvastatin Calcium 10 MG TAB PO SCH (20:40)
[2022-03-23] MEDS: Montelukast Sodium 10 mg Tablet PO SCH (20:40)
[2022-03-24] MEDS: Sodium Chloride 0.9% 1,000 ML IV SCH ×3 (00:26→15:51)
[2022-03-24] MEDS: Sulfameth/Trimethoprim DS 800-160mg TAB PO SCH ×2 (09:18→21:32)
[2022-03-24] MEDS: Fluticasone Propionate Nasal Spray 16 gm Bottle NASAL SCH (09:18)
[2022-03-24] MEDS: Thyroid 60 MG TAB PO SCH (09:18)
[2022-03-24] MEDS: Aspirin 81 mg Enteric Coated Tablet PO SCH (09:18)
[2022-03-24] MEDS: Famotidine 20 MG TAB PO SCH ×2 (09:18→21:32)
[2022-03-24] MEDS: Montelukast Sodium 10 mg Tablet PO SCH (21:32)
[2022-03-24] MEDS: Atorvastatin Calcium 10 MG TAB PO SCH (21:32)
[2022-03-25] MEDS: Sodium Chloride 0.9% 1,000 ML IV SCH ×2 (03:44→15:30)
[2022-03-25] MEDS: Thyroid 60 MG TAB PO SCH (09:58)
[2022-03-25] MEDS: Fluticasone Propionate Nasal Spray 16 gm Bottle NASAL SCH (09:58)
[2022-03-25] MEDS: Aspirin 81 mg Enteric Coated Tablet PO SCH (09:58)
[2022-03-25] MEDS: Sulfameth/Trimethoprim DS 800-160mg TAB PO SCH ×2 (09:59→21:35)
[2022-03-25] MEDS: Famotidine 20 MG TAB PO SCH ×2 (09:59→21:35)
[2022-03-25] MEDS: Acetaminophen 325 MG TAB PO PRN (10:02)
[2022-03-25] MEDS: Montelukast Sodium 10 mg Tablet PO SCH (21:35)
[2022-03-25] MEDS: Atorvastatin Calcium 10 MG TAB PO SCH (21:35)
[2022-03-26] MEDS: Sodium Chloride 0.9% 1,000 ML IV SCH ×2 (03:19→10:01)
[2022-03-26] MEDS: Thyroid 60 MG TAB PO SCH (09:58)
[2022-03-26] MEDS: Famotidine 20 MG TAB PO SCH ×2 (09:58→21:10)
[2022-03-26] MEDS: Sulfameth/Trimethoprim DS 800-160mg TAB PO SCH ×2 (09:58→21:10)
[2022-03-26] MEDS: Aspirin 81 mg Enteric Coated Tablet PO SCH (09:59)
[2022-03-26] MEDS: Fluticasone Propionate Nasal Spray 16 gm Bottle NASAL SCH (10:42)
[2022-03-26] MEDS: Montelukast Sodium 10 mg Tablet PO SCH (21:10)
[2022-03-26] MEDS: Atorvastatin Calcium 10 MG TAB PO SCH (21:10)
[2022-03-27] MEDS: Sodium Chloride 0.9% 1,000 ML IV SCH ×4 (05:26→21:54)
[2022-03-27] MEDS: Aspirin 81 mg Enteric Coated Tablet PO SCH (09:13)
[2022-03-27] MEDS: Sulfameth/Trimethoprim DS 800-160mg TAB PO SCH ×2 (09:13→21:53)
[2022-03-27] MEDS: Thyroid 60 MG TAB PO SCH (09:13)
[2022-03-27] MEDS: Famotidine 20 MG TAB PO SCH ×2 (09:13→21:53)
[2022-03-27] MEDS: diphenhydrAMINE 25 MG CAP PO PRN ×3 (09:33→22:51)
[2022-03-27] MEDS: Fluticasone Propionate Nasal Spray 16 gm Bottle NASAL SCH (14:02)
[2022-03-27] MEDS: Acetaminophen 325 MG TAB PO PRN (16:52)
[2022-03-27] MEDS: Atorvastatin Calcium 10 MG TAB PO SCH (21:53)
[2022-03-27] MEDS: Montelukast Sodium 10 mg Tablet PO SCH (21:53)
[2022-03-28] MEDS: Famotidine 20 MG TAB PO SCH ×2 (08:52→21:15)
[2022-03-28] MEDS: Aspirin 81 mg Enteric Coated Tablet PO SCH (08:52)
[2022-03-28] MEDS: Thyroid 60 MG TAB PO SCH (08:52)
[2022-03-28] MEDS: Sodium Chloride 0.9% 1,000 ML IV SCH (12:25)
[2022-03-28] MEDS: Fluticasone Propionate Nasal Spray 16 gm Bottle NASAL SCH (18:28)
[2022-03-28] MEDS: Atorvastatin Calcium 10 MG TAB PO SCH ×2 (21:14→21:15)
[2022-03-28] MEDS: Montelukast Sodium 10 mg Tablet PO SCH (21:15)
[2022-03-29] MEDS: Sodium Chloride 0.9% 1,000 ML IV SCH ×3 (02:41→16:09)
[2022-03-29] MEDS: Fluticasone Propionate Nasal Spray 16 gm Bottle NASAL SCH (08:25)
[2022-03-29] MEDS: Aspirin 81 mg Enteric Coated Tablet PO SCH (08:25)
[2022-03-29] MEDS: Famotidine 20 MG TAB PO SCH ×2 (08:25→21:18)
[2022-03-29] MEDS: Thyroid 60 MG TAB PO SCH (08:25)
[2022-03-29] MEDS: Acetaminophen 325 MG TAB PO PRN (13:13)
[2022-03-29] MEDS: Atorvastatin Calcium 10 MG TAB PO SCH (21:18)
[2022-03-29] MEDS: Montelukast Sodium 10 mg Tablet PO SCH (21:18)
[2022-03-30] MEDS: Sodium Chloride 0.9% 1,000 ML IV SCH ×2 (04:32→12:54)
[2022-03-30] MEDS: Thyroid 60 MG TAB PO SCH (08:00)
[2022-03-30] MEDS: Famotidine 20 MG TAB PO SCH (08:00)
[2022-03-30] MEDS: Aspirin 81 mg Enteric Coated Tablet PO SCH (08:00)
[2022-03-30] MEDS: Fluticasone Propionate Nasal Spray 16 gm Bottle NASAL SCH (08:00)
[2022-03-30 12:07] VITALS: BP 130/73; TEMP 97.1
== END 2022-03-30 16:55 | disposition home health service (06) | DRG 690 ==
LOC: ERS 17:02 → SURG A 23:09 → OBSVTOIN 03-21 11:59
PROVIDERS: ADMIT Specialist; ATTEND Specialist
DX: N39.0 Urinary tract infection, site not specified (principal); E87.1 Hypo-osmolality and hyponatremia; I50.32 Chronic diastolic (congestive) heart failure; Z20.822 Contact with and (suspected) exposure to COVID-19; B96.20 Unspecified Escherichia coli [E. coli] as the cause of diseases classified elsewhere; E78.5 Hyperlipidemia, unspecified; M19.90 Unspecified osteoarthritis, unspecified site; K21.9 Gastro-esophageal reflux disease without esophagitis; E89.0 Postprocedural hypothyroidism; I11.0 Hypertensive heart disease with heart failure; Z90.49 Acquired absence of other specified parts of digestive tract; Z85.3 Personal history of malignant neoplasm of breast; Z91.199 Patient's noncompliance with other medical treatment and regimen due to unspecified reason; Z82.49 Family history of ischemic heart disease and other diseases of the circulatory system; Z83.3 Family history of diabetes mellitus; Z79.899 Other long term (current) drug therapy; Z79.82 Long term (current) use of aspirin
CPT/HCPCS: 36415; 51701; 71045; 80048; 80053; 80061; 81003; 81015; 83036; 83605; 84443; 84484; 85025; 87077; 87086; 87186; 87811; 93005; 96365; 96366; 96372; 96375; G0378; J0696; J1650; J1885; J3490; J7050

== ENCOUNTER 2022-05-03 19:05 | Emergency (ER) | payer OTHER, MEDICARE ==
[~2022-05-03 19:05] MED LIST changes: -Dexamethasone 20 MG/5 ML VIAL ONE; +Iopamidol-370 76% 500 ML 1 ML ONE; -Ketorolac Tromethamine 30 MG/ML VIAL ONE; -Lidocaine 1% PF 5 ML VIAL ONE; -Metoclopramide HCl 10 MG/2 ML VIAL ONE; -Ondansetron PF 4 MG/2 ML Vial ONE; -PHENYLEPHRINE-NS 100 MCG/ML 10 ML SYRINGE ONE; -PROPOFOL 200 MG/20 ML VIAL ONE; -Succinylcholine Chloride 20 MG/ML 10 ml SYRINGE FS ONE; -ePHEDrine 50 MG/ML VIAL ONE
[2022-05-03 20:41] LABS: #Eosinphils 0.2 thou/uL (0.0-0.7); #Lymphocytes 1.7 thou/uL (1.20-3.40); #Monocytes 0.7 thou/uL (0.11-0.59); #Neutrophils 4.6 thou/uL (1.40-6.50); %Basophils 0.5 % (0.0-1.0); %Eosinophils 2.8 % (0.0-10.0); %Lymphocytes 22.9 % (21.0-51.0); %Monocytes 9.5 % (0.0-10.0); %Neutrophils 64.3 % (42.0-75.0); Hemoglobin 12.2 g/dL (12.0-16.0); Mean Corpuscular HGB CONC 32.1 g/dL (32.0-36.0); Mean Corpuscular Hemoglobin 27.9 pg (27.0-31.0); Mean Corpuscular Volume 86.9 fl (78.0-98.0); Mean Platelet Volume 8.3 fL (7.4-10.4); Platelet Count 269 10x3/uL (130-400); RBC Distribution Width 12.9 % (11.5-14.5); Red Blood Cell (RBC) Count 4.38 mill/uL (4.20-5.40); White Blood Cell (WBC) Count 7.2 10x3/uL (4.8-10.8)
[2022-05-03 21:01] LABS: Bacteria/HPF 3+ HPF (None Seen); Bilirubin Negative (Negative); Blood, Urine 3+ (Negative); Clarity Turbid (Clear); Glucose, Urine (Dipstick) Normal (Negative); Ketone, Urine Negative (Negative); Leukocyte Negative Leu/uL (Negative); Nitrite Negative (Negative); Protein, Urine (Dipstick) Negative (Neg-Trace); RBC/HPF 0-3 HPF (0-3); Specific Gravity, Urine 1.017 (1.002-1.036); WBC/HPF 0-3 HPF (0-3)
[2022-05-03 21:02] LABS: ALT (SGPT) 14 U/L (8-55); AST (SGOT) 17 U/L (5-34); Albumin 3.6 g/dL (3.4-4.8); Alkaline Phosphatase 121 U/L (40-110); Anion Gap 11 mmol/L (10-20); BUN (Urea Nitrogen) 9 mg/dL (9.8-20.1); Bilirubin, Total 0.8 mg/dL (0.2-1.2); Calc. Creatinine Clearance 0 mL/min (70-130); Calcium 8.8 mg/dL (7.8-10.44); Carbon Dioxide 25 mmol/L (23-31); Chloride 99 mmol/L (98-107); Estimated GFR 94; Globulin 3.2 g/dL (2.4-3.5); Glucose 89 mg/dL (83-110); Lipase 7 U/L (8-78); Protein, Total 6.8 g/dL (5.8-8.1); Sodium 131 mmol/L (136-145)
[2022-05-03 21:07] LABS: INR-International Normal Ratio 1.1; PTT 31.1 sec (22.9-36.1); Prothrombin Time 14.2 sec (12.0-14.7)
[2022-05-03] MEDS ORDERED: Ketorolac Tromethamine 30 MG/ML VIAL ONE (22:11)
== END 2022-05-04 | disposition home or self-care (01) ==
LOC: ERS 19:05
DX: R10.816 Epigastric abdominal tenderness (principal); K62.5 Hemorrhage of anus and rectum; E03.9 Hypothyroidism, unspecified; E78.5 Hyperlipidemia, unspecified; I10 Essential (primary) hypertension; K21.9 Gastro-esophageal reflux disease without esophagitis; Z79.899 Other long term (current) drug therapy; Z79.82 Long term (current) use of aspirin
CPT/HCPCS: 36415; 74177; 80053; 81003; 81015; 83690; 85025; 85610; 85730; 86850; 86900; 86901; 86905; 87077; 87086; 93005; 96374; J1885; Q9967

== ENCOUNTER 2023-08-07 12:42 | Outpatient (CLI) | payer OTHER | END 2023-08-07 12:43 | disposition home or self-care (01) | LOC: BICMAMMO 12:42 | PROVIDERS: ATTEND Specialist | DX: Z12.31 Encounter for screening mammogram for malignant neoplasm of breast (principal); Z85.3 Personal history of malignant neoplasm of breast; Z80.3 Family history of malignant neoplasm of breast; Z98.890 Other specified postprocedural states | CPT/HCPCS: 77063; 77067 ==

== ENCOUNTER 2023-09-07 10:14 | Day surgery (SDC) | payer OTHER ==
[2023-09-06 09:37] VITALS: BMI 39.4
[2023-09-07] MEDS ORDERED: Midazolam HCl 2 mg/2 ml Vial ONE (12:28)
[2023-09-07] MEDS ORDERED: PROPOFOL 20 ML ONE (12:29)
== END 2023-09-07 14:36 | disposition home or self-care (01) ==
LOC: SDC 10:14
PROVIDERS: ATTEND Internal Medicine Gastroenterology
PROC: 0DBN8ZZ Excision of Sigmoid Colon, Via Natural or Artificial Opening Endoscopic (ICD-10-PCS; principal; 2023-09-07)
DX: D12.5 Benign neoplasm of sigmoid colon (principal); K57.30 Diverticulosis of large intestine without perforation or abscess without bleeding; K64.8 Other hemorrhoids; K64.4 Residual hemorrhoidal skin tags; K21.9 Gastro-esophageal reflux disease without esophagitis; I11.0 Hypertensive heart disease with heart failure; I50.9 Heart failure, unspecified; E78.00 Pure hypercholesterolemia, unspecified; D50.9 Iron deficiency anemia, unspecified; Z90.49 Acquired absence of other specified parts of digestive tract; Z79.82 Long term (current) use of aspirin; Z79.899 Other long term (current) drug therapy
CPT/HCPCS: 45385; J2250; J2704; 88305

== ENCOUNTER 2024-02-13 16:10 | Emergency (ER) | payer OTHER | END 2024-02-13 18:30 | disposition home or self-care (01) | LOC: ERS 16:10 | DX: J06.9 Acute upper respiratory infection, unspecified (principal) | CPT/HCPCS: 71046; 87428 ==

== ENCOUNTER 2024-10-26 11:54 | Emergency (ER) | payer OTHER ==
[2024-10-26 13:22] LABS: #Basophils 0.05 10x3/uL (0.0-0.2); #Eosinophils 0.11 10x3/uL (0.0-0.7); #Monocytes 0.66 10x3/uL (0.11-0.59); #Neutrophils 4.26 10x3/uL (1.40-6.50); %Basophils 0.8 % (0.0-1.0); %Eosinophils 1.7 % (0.0-10.0); %Lymphocytes 21.8 % (21.0-51.0); %Monocytes 10.1 % (0.0-10.0); %Neutrophils 65.3 % (42.0-75.0); Hematocrit 39.3 % (36.0-47.0); Hemoglobin 12.8 g/dL (12.0-16.0); Mean Corpuscular Hemoglobin 27.9 pg (27.0-31.0); Mean Corpuscular Volume 85.8 fL (78.0-98.0); Platelet Count 246 10x3/uL (130-400); Red Blood Cell (RBC) Count 4.58 mill/uL (4.20-5.40); White Blood Cell (WBC) Count 6.52 10x3/uL (4.8-10.8)
[2024-10-26 13:31] LABS: ALT (SGPT) 21 U/L (Less than 34); AST (SGOT) 29 U/L (11-34); Albumin 3.6 g/dL (3.1-4.5); Alkaline Phosphatase 132 U/L (40-110); Anion Gap 13 mmol/L (10-20); BUN (Urea Nitrogen) 7 mg/dL (9.8-20.1); Bilirubin, Total 1.2 mg/dL (0.3-1.2); Calc. Creatinine Clearance 0 mL/min (70-130); Calcium 9.5 mg/dL (7.8-10.44); Carbon Dioxide 25 mmol/L (23-31); Chloride 92 mmol/L (98-107); Globulin 3.3 g/dL (2.4-3.5); Glucose 103 mg/dL (83-110); Potassium 4.8 mmol/L (3.5-5.1); Sodium 125 mmol/L (136-145)
[2024-10-26 13:31] LABS: Bacteria/HPF None Seen HPF (None Seen); CAUTI Indications for Culture Alt mental st,lethar; Glucose, Urine (Dipstick) Normal (Negative); Leukocyte Negative Leu/uL (Negative); Protein, Urine (Dipstick) Negative (Neg-Trace); RBC/HPF 0-3 HPF (0-3); Specific Gravity, Urine 1.011 (1.002-1.036); WBC/HPF 0-3 HPF (0-3)
[2024-10-26 13:37] LABS: Urine Culture Reflex No No
[2024-10-26] MEDS ORDERED: Ondansetron PF 4 MG/2 ML Vial ONE (14:10)
[2024-10-26] MEDS ORDERED: hydrALAZINE 20 MG/ML VIAL ONE (16:09)
[2024-10-26] MEDS ORDERED: Iopamidol-370 76% 500 ML MDV (1 ML CHARGE) ONE (16:09)
== END 2024-10-26 20:01 | disposition short-term general hospital (02) ==
LOC: ERS 11:54
DX: K85.90 Acute pancreatitis without necrosis or infection, unspecified (principal); K86.9 Disease of pancreas, unspecified; E87.1 Hypo-osmolality and hyponatremia; Z55.6 Problems related to health literacy; I11.0 Hypertensive heart disease with heart failure; I50.9 Heart failure, unspecified; E03.9 Hypothyroidism, unspecified; Z86.73 Personal history of transient ischemic attack (TIA), and cerebral infarction without residual deficits; Z79.82 Long term (current) use of aspirin; Z79.899 Other long term (current) drug therapy
CPT/HCPCS: 71045; 74177; 76705; 80053; 81001; 83605; 83690; 83880; 84484; 85025; 87428; 93005; 94760; J2405; J3010; Q9967; 51701; 96374; 96375; J0360

== ENCOUNTER 2024-12-03 14:54 | Emergency (ER) | payer OTHER ==
[~2024-12-03 14:54] MED LIST changes: -Iopamidol-370 76% 500 ML 1 ML ONE; +Iopamidol-370 76% 500 ML MDV (1 ML CHARGE) ONE
[2024-12-03 16:52] LABS: Bacteria/HPF 1+ HPF (None Seen); CAUTI Indications for Culture Alt mental st,lethar; Glucose, Urine (Dipstick) Normal (Negative); Leukocyte 500 Leu/uL (Negative); Protein, Urine (Dipstick) Negative (Neg-Trace); RBC/HPF 0-3 HPF (0-3); Specific Gravity, Urine 1.014 (1.002-1.036); WBC/HPF Greater than 50 HPF (0-3)
[2024-12-03 16:53] LABS: Urine Culture Reflex Yes Yes
[2024-12-03 16:56] LABS: #Basophils 0.03 10x3/uL (0.0-0.2); #Eosinophils 0.12 10x3/uL (0.0-0.7); #Monocytes 0.78 10x3/uL (0.11-0.59); #Neutrophils 5.05 10x3/uL (1.40-6.50); %Basophils 0.4 % (0.0-1.0); %Eosinophils 1.6 % (0.0-10.0); %Lymphocytes 19.8 % (21.0-51.0); %Monocytes 10.4 % (0.0-10.0); %Neutrophils 67.7 % (42.0-75.0); Hematocrit 37.5 % (36.0-47.0); Hemoglobin 11.9 g/dL (12.0-16.0); Mean Corpuscular Hemoglobin 27.5 pg (27.0-31.0); Mean Corpuscular Volume 86.6 fL (78.0-98.0); Platelet Count 218 10x3/uL (130-400); Red Blood Cell (RBC) Count 4.33 mill/uL (4.20-5.40); White Blood Cell (WBC) Count 7.47 10x3/uL (4.8-10.8)
[2024-12-03 17:16] LABS: ALT (SGPT) 35 U/L (Less than 34); AST (SGOT) 40 U/L (11-34); Albumin 3.3 g/dL (3.1-4.5); Alkaline Phosphatase 147 U/L (40-110); Anion Gap 14 mmol/L (10-20); BUN (Urea Nitrogen) Less than 4 mg/dL (9.8-20.1); Bilirubin, Total 1.1 mg/dL (0.3-1.2); Calc. Creatinine Clearance 0 mL/min (70-130); Calcium 9.1 mg/dL (7.8-10.44); Carbon Dioxide 27 mmol/L (23-31); Chloride 95 mmol/L (98-107); Globulin 3.4 g/dL (2.4-3.5); Glucose 123 mg/dL (83-110); Potassium 4.7 mmol/L (3.5-5.1); Sodium 131 mmol/L (136-145)
[2024-12-03 17:39] LABS: Lipase 5 U/L (8-78); Magnesium 1.8 mg/dL (1.6-2.6)
[2024-12-03] MEDS ORDERED: Ondansetron PF 4 MG/2 ML Vial ONE ×2 (17:41→17:44)
[2024-12-03] MEDS ORDERED: cefTRIAXone (ROCEPHIN) 1 GM VIAL ONE (18:16)
== END 2024-12-03 19:30 ==
LOC: ERS 14:54
DX: N39.0 Urinary tract infection, site not specified (principal); K86.9 Disease of pancreas, unspecified; I11.0 Hypertensive heart disease with heart failure; I50.9 Heart failure, unspecified; E11.9 Type 2 diabetes mellitus without complications; E03.9 Hypothyroidism, unspecified; Z86.73 Personal history of transient ischemic attack (TIA), and cerebral infarction without residual deficits; Z79.82 Long term (current) use of aspirin; Z79.899 Other long term (current) drug therapy; Z79.890 Hormone replacement therapy
CPT/HCPCS: 74177; 81001; 83690; 83735; 84484; 87086; 93005; J0696; J2270; 80053; 84443; 85025; 87077; 96365; 96375

== ENCOUNTER 2024-12-08 11:37 | Inpatient (IN) | payer OTHER ==
[2024-12-08 12:46] LABS: #Basophils Less than 0.03 10x3/uL (0.0-0.2); #Eosinophils 0.14 10x3/uL (0.0-0.7); #Monocytes 0.88 10x3/uL (0.11-0.59); #Neutrophils 6.58 10x3/uL (1.40-6.50); %Basophils 0.2 % (0.0-1.0); %Eosinophils 1.6 % (0.0-10.0); %Lymphocytes 11.4 % (21.0-51.0); %Monocytes 10.2 % (0.0-10.0); %Neutrophils 76.3 % (42.0-75.0); Hematocrit 40.1 % (36.0-47.0); Hemoglobin 12.5 g/dL (12.0-16.0); Mean Corpuscular Hemoglobin 27.6 pg (27.0-31.0); Mean Corpuscular Volume 88.5 fL (78.0-98.0); Platelet Count 222 10x3/uL (130-400); Red Blood Cell (RBC) Count 4.53 mill/uL (4.20-5.40); White Blood Cell (WBC) Count 8.63 10x3/uL (4.8-10.8)
[2024-12-08 13:02] LABS: ALT (SGPT) 31 U/L (Less than 34); AST (SGOT) 42 U/L (11-34); Albumin 3.3 g/dL (3.1-4.5); Alkaline Phosphatase 174 U/L (40-110); Anion Gap 13 mmol/L (10-20); BUN (Urea Nitrogen) 4 mg/dL (9.8-20.1); Bilirubin, Total 1.2 mg/dL (0.3-1.2); Calc. Creatinine Clearance 0 mL/min (70-130); Calcium 9.1 mg/dL (7.8-10.44); Carbon Dioxide 22 mmol/L (23-31); Chloride 93 mmol/L (98-107); Globulin 3.4 g/dL (2.4-3.5); Glucose 104 mg/dL (83-110); Lipase 6 U/L (8-78); Potassium 5.0 mmol/L (3.5-5.1); Sodium 123 mmol/L (136-145)
[2024-12-08 13:14] LABS: Glucose, Urine (Dipstick) Normal (Negative); Leukocyte Negative Leu/uL (Negative); Protein, Urine (Dipstick) Negative (Neg-Trace); Specific Gravity, Urine 1.008 (1.002-1.036)
[2024-12-08 13:15] LABS: Bacteria/HPF None Seen HPF (None Seen); CAUTI Indications for Culture Acute Hematuria; RBC/HPF 0-3 HPF (0-3); WBC/HPF None Seen HPF (0-3)
[2024-12-08 13:17] LABS: Urine Culture Reflex No No
[2024-12-08] MEDS ORDERED: Guaifenesin DM 100-10/5 ML UDCUP PO PRN (14:07)
[2024-12-08] MEDS ORDERED: Ondansetron PF 4 MG/2 ML Vial IVP PRN (14:07)
[2024-12-08 15:30] VITALS: BMI 34.3
[2024-12-08 16:07] LABS: Osmolality, Serum 261 mOsm/kg (280-301)
[2024-12-08 16:21] LABS: Anion Gap 14 mmol/L (10-20); BUN (Urea Nitrogen) 4 mg/dL (9.8-20.1); Calc. Creatinine Clearance 127 mL/min (70-130); Calcium 8.7 mg/dL (7.8-10.44); Carbon Dioxide 25 mmol/L (23-31); Chloride 95 mmol/L (98-107); Glucose 86 mg/dL (83-110); Potassium 4.5 mmol/L (3.5-5.1); Sodium 129 mmol/L (136-145)
[2024-12-08 16:28] LABS: Osmolality, Urine 206 mOsm/kg (50-1200)
[2024-12-08] MEDS ORDERED: HYDROcodone/Acetaminophen 5/325 mg Tablet ONE (17:01)
[2024-12-08] MEDS: HYDROcodone/Acetaminophen 5/325 mg Tablet PO PRN (17:06)
[2024-12-08] MEDS ORDERED: Carvedilol 6.25 MG TAB ONE (17:12)
[2024-12-08] MEDS: Carvedilol 3.125 MG TAB PO SCH (17:47)
[2024-12-08 22:32] LABS: Albumin 2.9 g/dL (3.1-4.5); Anion Gap 9 mmol/L (10-20); BUN (Urea Nitrogen) 4 mg/dL (9.8-20.1); BUN/Creatinine Ratio 7.14; Calc. Creatinine Clearance 122 mL/min (70-130); Calcium 8.5 mg/dL (7.8-10.44); Carbon Dioxide 23 mmol/L (23-31); Chloride 96 mmol/L (98-107); Glucose 149 mg/dL (83-110); Potassium 4.8 mmol/L (3.5-5.1); Sodium 123 mmol/L (136-145)
[2024-12-08] MEDS: Calcium Carbonate 500 MG ChewTAB PO PRN (23:32)
[2024-12-09 04:48] LABS: #Basophils 0.03 10x3/uL (0.0-0.2); #Eosinophils 0.22 10x3/uL (0.0-0.7); #Monocytes 0.97 10x3/uL (0.11-0.59); #Neutrophils 4.89 10x3/uL (1.40-6.50); %Basophils 0.4 % (0.0-1.0); %Eosinophils 2.9 % (0.0-10.0); %Lymphocytes 17.9 % (21.0-51.0); %Monocytes 13.0 % (0.0-10.0); %Neutrophils 65.4 % (42.0-75.0); Hematocrit 37.8 % (36.0-47.0); Hemoglobin 12.0 g/dL (12.0-16.0); Mean Corpuscular Hemoglobin 27.6 pg (27.0-31.0); Mean Corpuscular Volume 86.9 fL (78.0-98.0); Platelet Count 218 10x3/uL (130-400); Red Blood Cell (RBC) Count 4.35 mill/uL (4.20-5.40); White Blood Cell (WBC) Count 7.48 10x3/uL (4.8-10.8)
[2024-12-09 05:15] LABS: ALT (SGPT) 32 U/L (Less than 34); AST (SGOT) 35 U/L (11-34); Albumin 3.0 g/dL (3.1-4.5); Alkaline Phosphatase 165 U/L (40-110); Anion Gap 13 mmol/L (10-20); BUN (Urea Nitrogen) 4 mg/dL (9.8-20.1); Bilirubin, Total 1.0 mg/dL (0.3-1.2); Calc. Creatinine Clearance 132 mL/min (70-130); Calcium 8.7 mg/dL (7.8-10.44); Carbon Dioxide 22 mmol/L (23-31); Chloride 98 mmol/L (98-107); Globulin 3.3 g/dL (2.4-3.5); Glucose 87 mg/dL (83-110); Potassium 4.5 mmol/L (3.5-5.1); Sodium 128 mmol/L (136-145)
[2024-12-09] MEDS: Aspirin Chewable 81 MG TAB PO SCH (08:28)
[2024-12-09] MEDS: Dapagliflozin Propanediol 10 MG TAB PO SCH (08:28)
[2024-12-09] MEDS: Enoxaparin 40 MG (0.4 mL) SYRINGE SC SCH (08:29)
[2024-12-09] MEDS: Senokot S 8.6-50 MG TAB PO PRN (08:29)
[2024-12-09] MEDS: Pantoprazole 40 MG DR.TAB PO SCH (08:29)
[2024-12-09 17:57] LABS: Anion Gap 9 mmol/L (10-20); BUN (Urea Nitrogen) 7 mg/dL (9.8-20.1); Calc. Creatinine Clearance 120 mL/min (70-130); Calcium 8.6 mg/dL (7.8-10.44); Carbon Dioxide 23 mmol/L (23-31); Chloride 100 mmol/L (98-107); Glucose 147 mg/dL (83-110); Potassium 4.0 mmol/L (3.5-5.1); Sodium 128 mmol/L (136-145)
[2024-12-10] MEDS: PAROXETINE 10 MG/5 ML PO SCH (01:00)
[2024-12-10 07:03] LABS: Albumin 2.7 g/dL (3.1-4.5); Anion Gap 11 mmol/L (10-20); BUN (Urea Nitrogen) 7 mg/dL (9.8-20.1); BUN/Creatinine Ratio 12.96; Calc. Creatinine Clearance 127 mL/min (70-130); Calcium 8.4 mg/dL (7.8-10.44); Carbon Dioxide 23 mmol/L (23-31); Chloride 100 mmol/L (98-107); Glucose 96 mg/dL (83-110); Potassium 4.0 mmol/L (3.5-5.1); Sodium 130 mmol/L (136-145)
[2024-12-10 13:35] LABS: Anion Gap 13 mmol/L (10-20); BUN (Urea Nitrogen) 7 mg/dL (9.8-20.1); Calc. Creatinine Clearance 132 mL/min (70-130); Calcium 8.7 mg/dL (7.8-10.44); Carbon Dioxide 26 mmol/L (23-31); Chloride 96 mmol/L (98-107); Glucose 96 mg/dL (83-110); Potassium 4.0 mmol/L (3.5-5.1); Sodium 131 mmol/L (136-145)
[2024-12-10] MEDS: Acetaminophen 325 MG TAB PO PRN (16:54)
[2024-12-11 05:43] LABS: Albumin 2.8 g/dL (3.1-4.5); Anion Gap 7 mmol/L (10-20); BUN (Urea Nitrogen) 6 mg/dL (9.8-20.1); BUN/Creatinine Ratio 11.32; Calc. Creatinine Clearance 129 mL/min (70-130); Calcium 9.0 mg/dL (7.8-10.44); Carbon Dioxide 30 mmol/L (23-31); Chloride 98 mmol/L (98-107); Glucose 94 mg/dL (83-110); Potassium 4.5 mmol/L (3.5-5.1); Sodium 130 mmol/L (136-145)
[2024-12-11] MEDS: Albumin 25% 25 GM (100 mL) BOT IVPB SCH (09:10)
[2024-12-11 18:12] LABS: Albumin 3.7 g/dL (3.1-4.5); Anion Gap 12 mmol/L (10-20); BUN (Urea Nitrogen) 10 mg/dL (9.8-20.1); BUN/Creatinine Ratio 16.39; Calc. Creatinine Clearance 112 mL/min (70-130); Calcium 9.6 mg/dL (7.8-10.44); Carbon Dioxide 24 mmol/L (23-31); Chloride 100 mmol/L (98-107); Glucose 105 mg/dL (83-110); Potassium 5.1 mmol/L (3.5-5.1); Sodium 131 mmol/L (136-145)
[2024-12-11] MEDS: Transdermal Patch Removal TOP SCH (20:30)
[2024-12-12 09:42] VITALS: TEMP 98.2
[2024-12-12 10:32] LABS: #Basophils 0.03 10x3/uL (0.0-0.2); #Eosinophils 0.39 10x3/uL (0.0-0.7); #Monocytes 0.56 10x3/uL (0.11-0.59); #Neutrophils 4.94 10x3/uL (1.40-6.50); %Basophils 0.4 % (0.0-1.0); %Eosinophils 5.3 % (0.0-10.0); %Lymphocytes 18.6 % (21.0-51.0); %Monocytes 7.7 % (0.0-10.0); %Neutrophils 67.6 % (42.0-75.0); Hematocrit 36.0 % (36.0-47.0); Hemoglobin 11.6 g/dL (12.0-16.0); Mean Corpuscular Hemoglobin 28.1 pg (27.0-31.0); Mean Corpuscular Volume 87.2 fL (78.0-98.0); Platelet Count 247 10x3/uL (130-400); Red Blood Cell (RBC) Count 4.13 mill/uL (4.20-5.40); White Blood Cell (WBC) Count 7.31 10x3/uL (4.8-10.8)
[2024-12-12 11:04] LABS: Albumin 3.3 g/dL (3.1-4.5); Anion Gap 11 mmol/L (10-20); BUN (Urea Nitrogen) 9 mg/dL (9.8-20.1); BUN/Creatinine Ratio 17.31; Calc. Creatinine Clearance 132 mL/min (70-130); Calcium 9.2 mg/dL (7.8-10.44); Carbon Dioxide 27 mmol/L (23-31); Chloride 97 mmol/L (98-107); Glucose 160 mg/dL (83-110); Potassium 4.2 mmol/L (3.5-5.1); Sodium 131 mmol/L (136-145)
[2024-12-12 16:41] VITALS: BP 138/83
== END 2024-12-12 20:55 | DRG 644 ==
LOC: ERS 11:37 → ERHOLD 14:09 → T4-B 20:21
PROVIDERS: ADMIT Hospitalist; ATTEND Internal Medicine
PROC: 0T9B70Z Drainage of Bladder with Drainage Device, Via Natural or Artificial Opening (ICD-10-PCS; 2024-12-10)
PROC: 30233J1 Transfusion of Nonautologous Serum Albumin into Peripheral Vein, Percutaneous Approach (ICD-10-PCS; principal; 2024-12-11)
DX: E22.2 Syndrome of inappropriate secretion of antidiuretic hormone (principal); C25.9 Malignant neoplasm of pancreas, unspecified; E78.5 Hyperlipidemia, unspecified; K86.89 Other specified diseases of pancreas; F32.A Depression, unspecified; I11.0 Hypertensive heart disease with heart failure; I50.9 Heart failure, unspecified; K59.00 Constipation, unspecified; E89.0 Postprocedural hypothyroidism; Z86.73 Personal history of transient ischemic attack (TIA), and cerebral infarction without residual deficits; Z98.890 Other specified postprocedural states; Z90.49 Acquired absence of other specified parts of digestive tract; Z88.2 Allergy status to sulfonamides; Z88.8 Allergy status to other drugs, medicaments and biological substances; Z79.82 Long term (current) use of aspirin; Z79.899 Other long term (current) drug therapy
CPT/HCPCS: 36415; 80053; 80069; 81001; 83690; 83930; 83935; 84300; 84443; 84484; 85025; 93005; 94760; 99285; J1650; J7030; P9047

== ENCOUNTER 2025-01-07 12:50 | Emergency (ER) | payer OTHER ==
[2025-01-07] MEDS ORDERED: Acetaminophen 500 MG TAB ONE (13:56)
[2025-01-07 14:23] LABS: #Basophils 0.03 10x3/uL (0.0-0.2); #Eosinophils 0.16 10x3/uL (0.0-0.7); #Monocytes 0.78 10x3/uL (0.11-0.59); #Neutrophils 7.59 10x3/uL (1.40-6.50); %Basophils 0.3 % (0.0-1.0); %Eosinophils 1.7 % (0.0-10.0); %Lymphocytes 8.6 % (21.0-51.0); %Monocytes 8.3 % (0.0-10.0); %Neutrophils 80.7 % (42.0-75.0); Hematocrit 40.7 % (36.0-47.0); Hemoglobin 13.0 g/dL (12.0-16.0); Mean Corpuscular Hemoglobin 27.0 pg (27.0-31.0); Mean Corpuscular Volume 84.6 fL (78.0-98.0); Platelet Count 251 10x3/uL (130-400); Red Blood Cell (RBC) Count 4.81 mill/uL (4.20-5.40); White Blood Cell (WBC) Count 9.41 10x3/uL (4.8-10.8)
[2025-01-07 14:42] LABS: ALT (SGPT) 78 U/L (Less than 34); AST (SGOT) 75 U/L (11-34); Albumin 3.5 g/dL (3.1-4.5); Alkaline Phosphatase 317 U/L (40-110); Anion Gap 16 mmol/L (10-20); BUN (Urea Nitrogen) 5 mg/dL (9.8-20.1); Bilirubin, Total 1.6 mg/dL (0.3-1.2); Calc. Creatinine Clearance 0 mL/min (70-130); Calcium 9.3 mg/dL (7.8-10.44); Carbon Dioxide 21 mmol/L (23-31); Chloride 92 mmol/L (98-107); Globulin 3.3 g/dL (2.4-3.5); Glucose 85 mg/dL (83-110); Lipase 16 U/L (8-78); Potassium 4.9 mmol/L (3.5-5.1); Sodium 124 mmol/L (136-145)
== END 2025-01-07 16:58 | disposition home or self-care (01) ==
LOC: ERS 12:50
DX: R53.1 Weakness (principal); E87.1 Hypo-osmolality and hyponatremia; I11.0 Hypertensive heart disease with heart failure; I50.9 Heart failure, unspecified
CPT/HCPCS: 36415; 70450; 80053; 83690; 83880; 84484; 85025; 93005

== ENCOUNTER 2025-01-17 08:30 | Outpatient (CLI) | payer OTHER | END 2025-01-17 08:31 | disposition home or self-care (01) | LOC: ULT 08:30 | PROVIDERS: ATTEND Specialist | DX: M62.50 Muscle wasting and atrophy, not elsewhere classified, unspecified site (principal); R29.898 Other symptoms and signs involving the musculoskeletal system | CPT/HCPCS: 93923; 93970 ==